=== PATIENT | male | born 1950 | race Caucasian/White ===

== ENCOUNTER → 2018-06-19 13:21 | Outpatient (CLI) | payer MEDICARE, MEDICAID, SELFPAY ==
--- NOTE | 2018-06-19 13:35 | CT_ITS ---
CT head/brain wo con HISTORY: ITS.REASON: HEADACHES ORDERING PHYSICIAN: Tereso Segura MD PATIENT AGE: 67 years COMPARISON: None TECHNIQUE: Axial images obtained without contrast. Brain and bone windows reviewed. All CT scans at the facility use one or more dose reduction, viz: automated exposure control, ma/kV adjustment per patient size (including targeted exams where dose is matched to indication, i.e. head), or iterative reconstruction technique. FINDINGS: No midline shift, mass effect, intracranial hemorrhage, hydrocephalus, or extra-axial fluid collection is evident. There is asymmetric prominence of the CSF space in the left cerebellopontine angle possibly due to an arachnoid cyst. There is hyperdensity noted at the foramen [id number] measuring 7 mm x 7 mm in consistent with a colloid cyst. No definite hydrocephalus. The calvarium has an unremarkable appearance. No mastoid effusion. Opacified left mid ethmoid air cells noted at 11 mm.. IMPRESSION: 1. Hyperdense nodular lesion at the foramen of the marrow consistent with a colloid cyst at 7 x 7 mm. Recommend MRI without and with contrast for confirmation. 2. Asymmetric prominence of the left cerebellopontine angle space which could be due to an arachnoid cyst or due to compression of the brainstem by a tortuous vertebral artery. MRI may also further evaluate this.
[2018-06-19 14:23] LABS: Basophils # 0.1 K/mm3 (0-0.2); Basophils % 0.4 % (0.1-2.0); Eosinophils # 0.3 K/mm3 (0.0-0.4); Eosinophils % 2.2 % (0.1-12.0); Hematocrit 40.5 % (42.0-52.0); Hemoglobin 12.8 g/dL (14.1-18.0); Lymphocytes # 1.6 K/mm3 (0.7-4.5); Mean Corpuscular HGB Conc 31.6 g/dL (31.8-35.4); Mean Corpuscular Hemoglobin 26.6 pg (27.0-31.2); Mean Corpuscular Volume 84.3 fl (80-94); Mean Platelet Volume 6.6 fl (7.4-10.4); Monocytes # 0.8 K/mm3 (0.1-1.0); Monocytes % 5.6 % (1.7-9.3); Neutrophils # 10.6 K/mm3 (1.8-7.8); Neutrophils % 79.7 % (37.0-80.0); Platelet Count 374 K/mm3 (142-424); Red Cell Distribution Width 15.5 % (11.5-17.5); White Blood Count 13.3 K/mm3 (4.8-10.8)
[2018-06-19 15:29] LABS: Erythrocyte Sedimentation Rate 75 mm/hr (0-20)
== END ==
PROVIDERS: PCP Emergency Medicine; Visit Provider Emergency Medicine
DX: R51 Headache (principal)
CPT/HCPCS: 36415; 70450; 85025; 85651

== ENCOUNTER → 2018-07-03 10:42 | Outpatient (CLI) | payer MEDICARE, MEDICAID, SELFPAY ==
--- NOTE | 2018-07-03 10:45 | MR_ITS ---
MR head/brain wo/w con HISTORY: Stat headache, abnormal head CT with possible colloid cyst, ITS.REASON: ABNORMAL CT HEAD ORDERING PHYSICIAN: Tereso Segura MD PATIENT AGE: 67 years Comparison: 06/19/2018 TECHNIQUE: Standard multiplanar multiecho sequences are performed without and with gadolinium enhancement. FINDINGS: No midline shift, mass effect, hydrocephalus, or enhancing lesion is evident. The abnormality noted on the CT scan is not as well demonstrated on the MRI. On the CT scan there was a lobular area of increased density measuring 8 mm at the roof of the third ventricle suspicious for a colloid cyst. On the T1-weighted images there is slight increase signal at this region but only mild heterogeneous signal noted on the FLAIR images. Unremarkable findings on the T2-weighted images. No abnormal enhancement evident.. There is no evidence of hydrocephalus. There are mild periventricular ischemic gliotic changes. The cerebellopontine angles, cerebellum, and brainstem are unremarkable. There is an 9 mm rounded hyperintense T2 focus in the ethmoid sinus posteriorly on the left and may be due to a retention cyst. Retention cyst or fluid is present in the sphenoid sinus on the right. IMPRESSION: Abnormality noted on the CT scan is not as well demonstrated on MRI. This was felt to be due to a colloid cyst on the CT scan. Colloid cyst can have variable appearance on MRI. It is possible this could have represented prominent internal cerebral veins or small amount of blood. Suggest follow-up CT to see if this abnormality persists and if so then, a CT angiogram of the brain
[2018-07-03 11:08] LABS: Blood Urea Nitrogen 15 mg/dL (7-18); Creatinine,Serum 0.85 mg/dL (0.70-1.30); Estimated Glomerular Filt Rate 90 ml/min (>60); GFR (African American) 109 ML/MIN (>60)
--- NOTE | 2018-07-03 11:48 | HMH.ITSHM ---
PROAIR ASPIRIN ATORVASTFERROUS SULFATE LANTUS SOLOSTAR LISINOPRIL METFORMIN PROPRANOLOL TOPIRAMATE SERTRALINE
== END ==
PROVIDERS: PCP Emergency Medicine; Visit Provider Emergency Medicine
DX: R93.0 Abnormal findings on diagnostic imaging of skull and head, not elsewhere classified (principal)
CPT/HCPCS: 36415; 70553; 82565; 84520; A9576

== ENCOUNTER → 2018-10-20 09:04 | Outpatient (CLI) | payer MEDICARE, MEDICAID, SELFPAY ==
--- NOTE | 2018-10-20 | CT_ITS ---
CT abdomen pelvis wo/w con CLINICAL INDICATION: Follow-up adrenal mass ITS.REASON: ADRENAL MASS ORDERING PHYSICIAN: Narda Becerril MD PATIENT AGE: 67 years COMPARISON: 10/13/2018 TECHNIQUE: Axial images obtained without and with contrast. Immediate postenhanced and 15. Delayed images are obtained following contrast administration. Sagittal and coronal reformats. All CT scans at the facility use one or more dose reduction, viz: automated exposure control, ma/kV adjustment per patient size (including targeted exams where dose is matched to indication, i.e. head), or iterative reconstruction technique. PROCEDURE: Oral Contrast: None IV Contrast: None . FINDINGS: There is trace right-sided effusion. Prior cholecystectomy. There is an 8 millimeter isodensity in the right hepatic lobe unchanged since 09/27/2017. There are bilateral adrenal masses as previously described measuring up to 2.8 x 2.1 cm on the right 7 x 2.5 cm on the left. They do NOT demonstrate enhancement characteristics of adenomas and are consistent with metastasis.. In addition, there is a left renal mass involving the mid to upper pole the left kidney laterally measuring 3 cm. There is also a right renal mass can't 2.8 x 2.4 cm in the central aspect of the right kidney and an additional soft tissue mass involving the posterior aspect of the right kidney at 1.9 cm. There are bilateral renal cysts as well and there is a nonobstructing 4 mm stone in the lower pole the right kidney. The spleen and pancreas have an unremarkable appearance. No intestinal obstruction or free air. A destructive mass involves the proximal aspect of the right femur medially at the lesser trochanteric region measuring 3.4 cm. There is mild ectasia of the abdominal aorta at 2.8 cm. No evidence of retroperitoneal hemorrhage. No retroperitoneal or intraperitoneal adenopathy. IMPRESSION: 1. 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 2. Nonobstructing left nephrolithiasis
--- NOTE | 2018-10-20 | CT_ITS ---
CT chest w con HISTORY: Evaluate for lung primary carcinoma. Adrenal nodules, metastatic lesion to the right femur, renal mass ITS.REASON: ADRENAL LESION ORDERING PHYSICIAN: Narda Becerril MD PATIENT AGE: 67 years COMPARISON: None TECHNIQUE: Axial images obtained following the administration of 75 mL of Isovue 370 . Sagittal, and coronal reformatted images are also generated and reviewed. All CT scans at the facility use one or more dose reduction, viz: automated exposure control, ma/kV adjustment per patient size (including targeted exams where dose is matched to indication, i.e. head), or iterative reconstruction technique. FINDINGS: There is a large right upper lobe/right hilar/mediastinal mass. Soft tissue mass extends from the right aspect of the central mediastinum into the hilum and right upper lobe. Some of this may be due to collapsed 1. The soft tissue mass in the mediastinum and right hilum however is consistent with neoplasm. The right-sided mass measures 10 by 5.6 x 5.4 cm. The mediastinal and right hilar mass causes narrowing of the right mainstem bronchus and occlusion of the right upper lobe bronchus and right middle lobe bronchus neither one of which are demonstrated. There is collapse of the right upper lobe and right middle lobe. There is a small pneumothorax in the right upper lung anteriorly and medially versus bulla. There is a small right-sided effusion. There are destructive changes involving the right second rib posteriorly. This area measures approximately 2 cm. There is focal pleural thickening at this region. There are severe coronary artery calcifications. There is normal heart size. No evidence of pleural effusion. No contralateral mediastinal or hilar adenopathy. There is mild thickening of the esophagus. There is an 11 mm lytic lesion involving the left fourth rib laterally. The margins are fairly well-circumscribed. A noncalcified 4 mm nodule is present within the lingula. A subpleural 4 mm nodule is present in the left lower lobe anteriorly. IMPRESSION: 1. Large right-sided mediastinal and hilar mass extending into the right upper lobe with collapse of the right upper lobe and right middle lobe consistent with bronchogenic neoplasm. There is also circumferential narrowing of the right mainstem bronchus due to the mass. There is trace right effusion. The mediastinal and right hilar mass would be the most accessible and safest lesion for biopsy with bronchoscopy as opposed to the adrenal masses. 2. There is a destructive lesion involving the right second rib consistent with metastasis. A fairly well-circumscribed lytic lesion involving the left fourth rib. 3. Coronary artery disease 4. There is a small loculated right upper thoracic pneumothorax in the upper lung zone medially versus a pneumatocele or bulla accentuated by the volume loss.
--- NOTE | 2018-10-20 10:00 | MR_ITS ---
MR head/brain wo/w con HISTORY: Lung cancer with metastatic disease ITS.REASON: CHEST AND BRAIN LESIONS ORDERING PHYSICIAN: Narda Becerril MD PATIENT AGE: 67 years Comparison: 07/03/2018 TECHNIQUE: Standard multiplanar multiecho sequences are performed without and with gadolinium enhancement. FINDINGS: No midline shift, mass effect, intracranial hemorrhage, or hydrocephalus is evident. There are nonspecific periventricular and subcortical T2 white matter hyperintensities consistent with ischemic gliotic change from microvascular disease. No intracranial enhancing lesions are evident. No evidence of acute infarction. The cerebellopontine angles, cerebellum, and brainstem are unremarkable. The pituitary optic chiasm and corpus callosum have an unremarkable appearance. Craniocervical junction is unremarkable. Previous CT raised the question of a colloid cyst at the foramen of [place]. This area once again has an unremarkable MRI appearance and may have been due to prominent cerebral veins on the CT scan. A 9 mm retention cyst or polyp is noted in the left ethmoid region as before. No acute calvarial abnormality apparent. No sinus air-fluid level or mastoid effusion. IMPRESSION: 1. Overall no change with no acute finding. 2. Mild periventricular ischemic gliotic changes. 3. No convincing evidence of metastatic disease
== END ==
PROVIDERS: PCP Emergency Medicine; Visit Provider Internal Medicine Medical Oncology
DX: E27.9 Disorder of adrenal gland, unspecified (principal); R51 Headache
CPT/HCPCS: 70553; 71260; 74177; 74178; A9576; Q9967

== ENCOUNTER → 2018-10-24 08:41 | Outpatient (CLI) | payer MEDICARE, MEDICAID, SELFPAY ==
--- NOTE | 2018-10-24 08:51 | XR_ITS ---
XR hip RT 2-3V w/pelvis HISTORY: ITS.REASON: right hip pain, lytic lesion of the right hip, probable bronchogenic carcinoma with metastatic disease ORDERING PHYSICIAN: Kal Mota MD PATIENT AGE: 67 years COMPARISON: 10/20/2018 FINDINGS: There is a rounded lytic lesion involving the medial aspect of the intertrochanteric region of the proximal femur with destruction of the needle aspect of the proximal femur and the superior aspect of the lesser trochanter. This area measures approximately 3.6 cm. No obvious fracture or malalignment. There are surgical clips in the right inguinal region. IMPRESSION: Lytic lesion of the right femur along the lesser trochanter and intertrochanteric region as described above with metastatic disease
--- NOTE | 2018-10-24 08:51 | XR_ITS ---
XR femur RT 2V HISTORY: Femur pain ITS.REASON: right hip pain, lytic lesion of the right hip, probable bronchogenic carcinoma with metastatic disease ORDERING PHYSICIAN: Kal Mota MD PATIENT AGE: 67 years COMPARISON: 10/20/2018 FINDINGS: There is a rounded lytic lesion involving the medial aspect of the intertrochanteric region of the proximal femur with destruction of the needle aspect of the proximal femur and the superior aspect of the lesser trochanter. This area measures approximately 3.6 cm. No obvious fracture or malalignment. There are surgical clips in the right inguinal region. The mid and distal aspect of the femur has an unremarkable appearance. There are surgical clips along the thigh medially. Prior femoropopliteal bypass bypass IMPRESSION: Lytic lesion of the right femur along the lesser trochanter and intertrochanteric region as described above with metastatic disease
== END ==
PROVIDERS: PCP Emergency Medicine; Visit Provider Orthopaedic Surgery
DX: M25.551 Pain in right hip (principal); M89.8X5 Other specified disorders of bone, thigh
CPT/HCPCS: 73502; 73552

== ENCOUNTER 2018-10-27 10:17 | Inpatient (IN) ==
[2018-10-27 11:47] LABS: Basophils # 0.1 K/mm3 (0-0.2); Basophils % 0.5 % (0.1-2.0); Eosinophils # 0.1 K/mm3 (0.0-0.4); Eosinophils % 0.6 % (0.1-12.0); Hematocrit 29.1 % (42.0-52.0); Hemoglobin 8.3 g/dL (14.1-18.0); Mean Corpuscular HGB Conc 28.5 g/dL (31.8-35.4); Mean Corpuscular Hemoglobin 23.5 pg (27.0-31.2); Mean Corpuscular Volume 82.4 fl (80-94); Monocytes # 0.8 K/mm3 (0.1-1.0); Monocytes % 5.6 % (1.7-9.3); Neutrophils # 11.9 K/mm3 (1.8-7.8); Neutrophils % 86.1 % (37.0-80.0); Platelet Count 558 K/mm3 (142-424); Red Blood Count 3.53 M/mm3 (4.60-6.20); Red Cell Distribution Width 14.9 % (11.5-17.5); White Blood Count 13.8 K/mm3 (4.8-10.8)
[2018-10-27 11:59] LABS: Anion Gap 14.5 mEq/L (5-15); Calcium 11.5 mg/dL (8.5-10.1); Potassium 5.5 mmoL/L (3.5-5.1)
[2018-10-27 12:00] LABS: INR 1.17 (0.9-1.1)
[2018-10-27 12:08] LABS: Lymphocytes % 4 % (10-50); Monocytes % 4 % (2-9); Neutrophils % 92 % (42-76); RBC Morphology Normal; Total Cells Counted 100
--- NOTE | 2018-10-27 13:27 | History & Physical Report ---
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 - pt has seen dr garcia and because of metastatic disease to hip and was seen by ortho who felt that pt would need surg [facility] History I have reviewed the patient's past medical history: Yes Medical History: Reports:: Cancer, Depression, Diabetes Mellitus Type 2, Hyperlipidemia, Hypertension, Migraine Denies:: Diabetes Mellitus Type 1 Have you ever received a pneumonia vaccine?: Yes (candy) Have you received a flu vaccine this season?: Yes (candy) Other Medical History: Reports: Anemia, Arthritis Amputation: No - *Social History Educational Level: Completed High School Smoking Status: Former smoker Tobacco Type: cigarettes, pipe Alcohol Intake: never Substance Use Type: former substance user Occupational Status: disabled Housing: [facility] Travel in the last 8 weeks: None - Psychiatric History Expresses thoughts of harming self/others: None Suicide Plan Description: No Plan Pschychiatric History:: Reports:: Depression *Family Hx:: Unable to obtain Review of Systems - Review of Systems Review of systems:: pertinent systems reviewed and negative unless documented below - Constitutional Denies fever(s) - Eyes Denies change in vision - ENT Denies sinus pain - *Cardiovascular Denies chest pain - *Respiratory Denies cough - *Gastrointestinal Denies abdominal pain - *Genitourinary Denies blood in urine - *Musculoskeletal Reports joint pain, Reports back pain, Reports limited joint movement, Reports body aches - Integumentary/Breasts Denies rash - *Neurologic Reports seizure-like activity, Denies abnormal speech, Denies localized weakness, Denies headache(s), Denies seizure-like activity - Psychiatric Denies anxiety Meds Home Medications Medication Instructions Recorded Confirmed Type Albuterol Sulfate [Proair Hfa 2 puffs IH Q4HP PRN 08/15/18 10/27/18 History 90mcg/puff Inh] Aspirin 81 mg PO DAILY 08/15/18 10/27/18 History Ferrous Sulfate [Ferrous Sulfate 325 mg PO DAILY 08/15/18 10/27/18 History 325mg Tablet] Metformin HCl 1,000 mg PO BID 08/15/18 10/27/18 History Propranolol HCl 40 mg PO BID 08/15/18 10/27/18 History Quetiapine Fumarate 25 mg PO HS 08/15/18 10/27/18 History RX: Acetaminophen [Acetaminophen 2 tab PO QIDP PRN 08/15/18 10/27/18 History 325mg tab] RX: Atorvastatin Calcium 850 mg PO DAILY 08/15/18 10/27/18 History [Atorvastatin 80mg Tab] RX: Insulin Glargine,Hum.rec.anlog 15 units SQ HS 08/15/18 10/27/18 History [Insulin Glargine 100 Units/mL 3mL flexpen] RX: Lisinopril [Lisinopril 2.5mg 2.5 mg PO DAILY 08/15/18 10/27/18 History Tab] RX: Sertraline HCl [Zoloft 100mg 100 mg PO DAILY 08/15/18 10/27/18 History tablet] Topiramate 50 mg PO HS 08/15/18 10/27/18 History RX: Lactulose [Lactulose 10gm/15ml 10 mg PO DAILY PRN 10/27/18 10/27/18 History Oral Soln] RX: Oxycodone HCl [OxyIR 5mg 5 mg PO Q4-6H PRN 10/27/18 10/27/18 History tablet] Allergies Allergy/AdvReac Type Severity Reaction Status Date / Time PENICILLIN Allergy Intermediate I-HIVES Uncoded 10/24/18 09:19 Exam Vital signs and Labs for Last 24 Hours: Temp Pulse Resp BP Pulse Ox 98.3 F 74 22 95/75 L 95 10/27/18 13:15 10/27/18 13:15 10/27/18 10:25 10/27/18 13:15 10/27/18 13:15 Laboratory Results - last 24 hr 10/27/18 11:30: WBC 13.8 H, RBC 3.53 L, Hgb 8.3 L, Hct 29.1 L, MCV 82.4, MCH 23.5 L, MCHC 28.5 L, RDW 14.9, Plt Count 558 H, MPV 6.0 L, Neut % (Auto) 86.1 H, Lymph % (Auto) 7.0 L, [place] % (Auto) 5.6, Eos % (Auto) 0.6, Baso % (Auto) 0.5, Neut # (Auto) 11.9 H, Lymph # (Auto) 1.0, [place] # (Auto) 0.8, Eos # (Auto) 0.1, Baso # (Auto) 0.1, Total Counted 100, Neutrophils % (Manual) 92 H, Lymphocytes % (Manual) 4 L, Monocytes % (Manual) 4, Platelet Estimate Slight increase, RBC Morphology Normal 10/27/18 11:30: Blood Type O Positive, Antibody Screen Negative, Crossmatch (AHG) See Detail 10/27/18 11:30: PT 12.0 H, INR 1.17 H 10/27/18 11:30: Sodium 136, Potassium 5.5 H, Chloride 100, Carbon Dioxide 27, Anion Gap 14.5, BUN 34 H, Creatinine 1.25, Estimated Creat Clear 50, Estimated GFR 58 L, Est GFR ( Amer) 70, Glucose 90, Calcium 11.5 H 10/27/18 12:18: Blood Type Confirm O Positive I & O for Last 24 hours: Intake & Output 10/25/18 10/26/18 10/27/18 10/28/18 11:59 11:59 11:59 11:59 Intake Total 0 / 0 Balance 0 / 0 Weight 135 lb 4 oz - Constitutional no acute distress, thin - *Routine HEENT Exam Head: Present: normocephalic Eye: Present: EOMI, PERRL. Absent: conjunctival icterus ENT: Present: mucous membranes dry - *Routine Neck Exam Present: supple. Absent: JVD - *Routine Respiratory Exam Present: CTA bilaterally - *Routine Cardiovascular Exam Present: RRR, murmur, S4 - *Routine Abdominal Exam Present: soft - *Routine Extremities Exam Absent: Rufina's sign - Routine Back/Spine/Pelvis Exam Comments: pain rt hip with rom - *Routine Skin Exam Present: intact - *Routine Neurological Exam Present: alert, oriented X3, CN II-XII intact - Routine Psychiatric Exam Present: cooperative Assessment and Plan (1) Lung cancer metastatic to bone Current visit: Yes Status: Acute Category: Medical Code(s): C34.90 - Malignant neoplasm of unspecified part of unspecified bronchus or lung; C79.51 - Secondary malignant neoplasm of bone (2) Mass of both adrenal glands Current visit: No Status: Acute Category: Medical Code(s): E27.9 - Disorder of adrenal gland, unspecified (3) Anemia Current visit: Yes Status: Acute Qualifiers: Anemia type: unspecified type Qualified Code(s): D64.9 - Anemia, unspecified Category: Medical Code(s): D64.9 - Anemia, unspecified (4) Anemia Current visit: No Status: Acute Qualifiers: Anemia type: unspecified type Qualified Code(s): D64.9 - Anemia, unspecified Category: Medical Code(s): D64.9 - Anemia, unspecified (5) Renal insufficiency Current visit: Yes Status: Acute Category: Medical Code(s): N28.9 - Disorder of kidney and ureter, unspecified (6) Hypercalcemia Current visit: Yes Status: Acute Category: Medical Code(s): E83.52 - Hypercalcemia (7) CAD (coronary artery disease) Current visit: Yes Status: Acute Qualifiers: Coronary Disease-Associated Artery/Lesion type: unspecified vessel or lesion type Category: Medical Code(s): I25.10 - Atherosclerotic heart disease of [place] coronary artery without angina pectoris
--- NOTE | 2018-10-27 14:15 | Consult Report ---
History of Present Illness Consult date: 10/27/18 Requesting physician: Tereso Segura Consult reason: pre-op evaluation Chief complaint: Hip pain Additional Medical History:: 1. Tobacco use, discontinued greater than 1 year ago 2. Diabetes mellitus, treated for greater than 10 years 3. 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 Right hip fracture secondary to metastatic cancer 4. History of hypertension, now with low blood pressure 5. Hyperlipidemia 6. Anemia 7. Thrombocytosis 8. Severe coronary artery calcifications on CT of chest, 10/20/18 History of present illness: 67-year-old white male with diabetes and metastatic lung cancer to adrenals and bone admitted for right hip fracture. Patient has a significant amount of pain from this right hip fracture due to metastasis and was admitted for surgical correction for pain control. Cardiology was asked to see the patient for preop evaluation. Patient denies chest pain or prior cardiac history. States he has been treated for diabetes for greater than 10 years and a discontinued smoking more than 1 year ago. [facility] History Medical History: Reports:: Cancer, Depression, Diabetes Mellitus Type 2, Hyperlipidemia, Hypertension, Migraine Denies:: Diabetes Mellitus Type 1 Have you ever received a pneumonia vaccine?: Yes ([place]) Have you received a flu vaccine this season?: Yes ([place]) Other Medical History: Reports: Anemia, Arthritis Amputation: No - *Social History Educational Level: Completed High School Smoking Status: Former smoker Tobacco Type: cigarettes, pipe Alcohol Intake: never Substance Use Type: former substance user Occupational Status: disabled Housing: detention Travel in the last 8 weeks: None - Psychiatric History Expresses thoughts of harming self/others: None Suicide Plan Description: No Plan Pschychiatric History:: Reports:: Depression *Family Hx:: Unable to obtain Meds Home Medications Medication Instructions Recorded Confirmed Type Acetaminophen [Acetaminophen 325mg 2 tab PO QIDP PRN 08/15/18 10/27/18 History tab] Albuterol Sulfate [Proair Hfa 2 puffs IH Q4HP PRN 08/15/18 10/27/18 History 90mcg/puff Inh] Aspirin 81 mg PO DAILY 08/15/18 10/27/18 History Atorvastatin Calcium [Atorvastatin 850 mg PO DAILY 08/15/18 10/27/18 History 80mg Tab] Ferrous Sulfate [Ferrous Sulfate 325 mg PO DAILY 08/15/18 10/27/18 History 325mg Tablet] Insulin Glargine,Hum.rec.anlog 15 units SQ DAILY 08/15/18 10/27/18 History [Insulin Glargine 100 Units/mL 3mL flexpen] Lisinopril [Lisinopril 2.5mg Tab] 2.5 mg PO DAILY 08/15/18 10/27/18 History Metformin HCl 1,000 mg PO BID 08/15/18 10/27/18 History Propranolol HCl 40 mg PO BID 08/15/18 10/27/18 History Quetiapine Fumarate 25 mg PO DAILY 08/15/18 10/27/18 History Sertraline HCl [Zoloft 100mg 100 mg PO DAILY 08/15/18 10/27/18 History tablet] Topiramate 50 mg PO DAILY 08/15/18 10/27/18 History Lactulose [Lactulose 10gm/15ml 10 mg PO NEEDED PRN 10/27/18 10/27/18 History Oral Soln] Lactulose [Lactulose 10gm/15ml 10 mg PO DAILY PRN 10/27/18 10/27/18 History Oral Soln] Oxycodone HCl [OxyIR 5mg tablet] 5 mg PO Q4-6H PRN 10/27/18 10/27/18 History Allergies Allergy/AdvReac Type Severity Reaction Status Date / Time PENICILLIN Allergy Intermediate I-HIVES Uncoded 10/24/18 09:19 Review of Systems - *Cardiovascular Denies chest pain, Denies shortness of breath with activity - *Respiratory Denies shortness of breath with activity - *Gastrointestinal Denies abdominal pain, Denies loose stools - *Genitourinary Denies blood in urine - *Musculoskeletal Reports joint pain Exam Vital signs and Labs for Last 24 Hours: Temp Pulse Resp BP Pulse Ox 98.6 F 72 18 98/64 L 97 10/27/18 13:55 10/27/18 13:55 10/27/18 13:55 10/27/18 13:55 10/27/18 13:55 Laboratory Results - last 24 hr 10/27/18 11:30: WBC 13.8 H, RBC 3.53 L, Hgb 8.3 L, Hct 29.1 L, MCV 82.4, MCH 23.5 L, MCHC 28.5 L, RDW 14.9, Plt Count 558 H, MPV 6.0 L, Neut % (Auto) 86.1 H, Lymph % (Auto) 7.0 L, [place] % (Auto) 5.6, Eos % (Auto) 0.6, Baso % (Auto) 0.5, Neut # (Auto) 11.9 H, Lymph # (Auto) 1.0, [place] # (Auto) 0.8, Eos # (Auto) 0.1, Baso # (Auto) 0.1, Total Counted 100, Neutrophils % (Manual) 92 H, Lymphocytes % (Manual) 4 L, Monocytes % (Manual) 4, Platelet Estimate Slight increase, RBC Morphology Normal 10/27/18 11:30: Blood Type O Positive, Antibody Screen Negative, Crossmatch (AHG) See Detail 10/27/18 11:30: PT 12.0 H, INR 1.17 H 10/27/18 11:30: Sodium 136, Potassium 5.5 H, Chloride 100, Carbon Dioxide 27, Anion Gap 14.5, BUN 34 H, Creatinine 1.25, Estimated Creat Clear 50, Estimated GFR 58 L, Est GFR ( Amer) 70, Glucose 90, Calcium 11.5 H 10/27/18 12:18: Blood Type Confirm O Positive I & O for Last 24 hours: Intake & Output 10/25/18 10/26/18 10/27/18 10/28/18 11:59 11:59 11:59 11:59 Intake Total 240 / 240 Balance 240 / 240 Weight 135 lb 4 oz - Constitutional mild distress, moderate distress Comments: Patient does appear to be in mild distress due to his hip pain. He answers briefly but appropriately. He knows where he is at, the date and the president. - *Routine HEENT Exam Head: Present: normocephalic Eye: Present: EOMI, PERRL ENT: Present: mucous membranes moist - *Routine Neck Exam Present: supple. Absent: JVD, carotid bruit - *Routine Respiratory Exam Absent: accessory muscle use, rales, rhonchi, wheezes - *Routine Cardiovascular Exam Present: RRR. Absent: murmur, gallop, rubs - *Routine Abdominal Exam Present: soft. Absent: tenderness, distended, guarding - *Routine Extremities Exam Absent: edema, calf tenderness - *Routine Neurological Exam Present: alert, oriented X3, moving all extremities Assessment and Plan (1) Lung cancer metastatic to bone Current visit: Yes Status: Acute Category: Medical Code(s): C34.90 - Malignant neoplasm of unspecified part of unspecified bronchus or lung; C79.51 - Secondary malignant neoplasm of bone (2) Mass of both adrenal glands Current visit: No Status: Acute Category: Medical Code(s): E27.9 - Disorder of adrenal gland, unspecified (3) Anemia Current visit: Yes Status: Acute Qualifiers: Anemia type: unspecified type Qualified Code(s): D64.9 - Anemia, unspecified Category: Medical Code(s): D64.9 - Anemia, unspecified (4) Anemia Current visit: No Status: Acute Qualifiers: Anemia type: unspecified type Qualified Code(s): D64.9 - Anemia, unspecified Category: Medical Code(s): D64.9 - Anemia, unspecified (5) Renal insufficiency Current visit: Yes Status: Acute Category: Medical Code(s): N28.9 - Disorder of kidney and ureter, unspecified (6) Hypercalcemia Current visit: Yes Status: Acute Category: Medical Code(s): E83.52 - Hypercalcemia (7) CAD (coronary artery disease) Current visit: Yes Status: Acute Qualifiers: Coronary Disease-Associated Artery/Lesion type: unspecified vessel or lesion type Category: Medical Code(s): I25.10 - Atherosclerotic heart disease of [place] coronary artery without angina pectoris - Assessment and plan all Dx Assessment and Plan for all problems:: 1. EKG shows NSR without acute ST segment changes. 2. PRELIMINARY echo shows preserved LVEF without significant valve disease. 3. Pt is a low and acceptable risk from a cardiac standpoint to proceed with orthopaedic surgery. 4. Continue aspirin michelle-operatively.
--- NOTE | 2018-10-27 15:15 | Pharmacy Consult Notes ---
[facility] Pharmacy VTE Monitoring - Patient Demographics Admission date: 10/27/18 Report Date: 10/27/18 Time: 15:15 Allergies/Adverse Reactions: Patient Allergies PENICILLIN Allergy (Intermediate, Uncoded 10/24/18 09:19) I-HIVES Height: 1.73 m Weight: 61.348 kg Patient Problems: Current Active Problems Lung cancer metastatic to bone (Acute) Anemia (Acute) Renal insufficiency (Acute) Hypercalcemia (Acute) CAD (coronary artery disease) (Acute) - VTE Risk Labs: VTE Related Lab Results Hgb 8.3 g/dL (14.1-18.0) L 10/27/18 11:30 Hct 29.1 % (42.0-52.0) L 10/27/18 11:30 Plt Count 558 K/mm3 (142-424) H 10/27/18 11:30 PT 12.0 seconds (9.4-11.8) H 10/27/18 11:30 INR 1.17 (0.9-1.1) H 10/27/18 11:30 BUN 34 mg/dL (7-18) H 10/27/18 11:30 Creatinine 1.25 mg/dL (0.70-1.30) 10/27/18 11:30 Estimated Creat Clear 50 mL/min (50-200) 10/27/18 11:30 Clinical Trial Participant: No - Prophylaxis VTE Prophylaxis Ordered?: Yes Types of VTE Prophylaxis: TEDS Knee High Location of Applied Device: Bilateral Lower Extremeties
[2018-10-27 20:37] LABS: Hematocrit 33.5 % (42.0-52.0)
[2018-10-27 20:48] LABS: Hemoglobin 10.1 g/dL (14.1-18.0)
--- NOTE | 2018-10-27 20:57 | Cardiology Report ---
PROCEDURE: 2-D M-mode and color Doppler study INDICATIONS FOR THE TEST: Chest pain COPD Heart Murmur+ Tobacco Smokingex Palpitations Fatigue Syncope Edema Hypertension+Diabetes Mellitus+ Rheumatic Fever SOB DAI Obesity Hyperlipidemia Family History HD Additional History LUNG CA STAGE 4, LIMITED STUDY-PT CONDITION PATIENT INFORMATION HEIGHT: 68 WEIGHT:135 GENDER: Male B/P:81/42 2-D/M-MODE INTERPRETATION: 2-D MEASUREMENTS OBSERVED VALUES IN CMS Right Ventricular Dimension (RVDd) 2.7 Interventricular Septum (Thickness)(IVsd) 0.9 Left Ventricular Internal Dimensions(LVIDd) 5.6 Left Ventricular Posterior Wall (Thickness)(LVPWd) 0.8 Aortic Root 2.0 Aortic Cusp Separation JORGE LUSI Left Atrial Dimensions (LAD) 3.3 2D 1. Technically very difficult and poor study. 2. The left atrium is mildly enlarged, left ventricle is normal size, there is abnormal septal motion, visually estimated ejection fraction approximately 55% as endocardial surface of very poorly visualized. 3. The right atrium and right ventricle are moderately enlarged, contractility of the right ventricle appears to be normal. 4. The aortic valve is thickened and calcified leaflet continue to display mobility. 5. The mitral and tricuspid valve are grossly normal. 6. The pulmonic valve is poorly visualized. 7. No significant pericardial effusion noted. DOPPLER INTERROGATION: Doppler interrogation of the aortic, mitral and tricuspid valvular presence of mild mitral and tricuspid regurgitation, tricuspid regurgitation jet velocity is inadequate for calculation of the right ventricular systolic pressure, grade 1 diastolic dysfunction seen with tissue Doppler evidence of raised left atrial pressure. CONCLUSION: 1. Technically very difficult and very poor study. 2. Normal left ventricular size, visually estimated ejection fraction 55% as endocardial surface of very poorly visualized. There is abnormal septal motion. Grade 1 diastolic dysfunction seen with tissue Doppler evidence of raised left atrial pressure. 3. Moderately enlarged right ventricle with normal contractility. 4. Mild mitral and tricuspid regurgitation 5. No significant pericardial effusion noted.
[2018-10-28 06:13] LABS: Basophils % 0.4 % (0.1-2.0); Eosinophils # 0.2 K/mm3 (0.0-0.4); Eosinophils % 1.8 % (0.1-12.0); Hematocrit 33.2 % (42.0-52.0); Hemoglobin 10.2 g/dL (14.1-18.0); Lymphocytes # 0.8 K/mm3 (0.7-4.5); Lymphocytes % 7.1 % (10-50); Mean Corpuscular HGB Conc 30.6 g/dL (31.8-35.4); Mean Corpuscular Hemoglobin 25.2 pg (27.0-31.2); Mean Corpuscular Volume 82.5 fl (80-94); Mean Platelet Volume 6.4 fl (7.4-10.4); Monocytes # 0.8 K/mm3 (0.1-1.0); Monocytes % 7.1 % (1.7-9.3); Neutrophils # 9.4 K/mm3 (1.8-7.8); Neutrophils % 83.6 % (37.0-80.0); Platelet Count 411 K/mm3 (142-424); Red Blood Count 4.02 M/mm3 (4.60-6.20); Red Cell Distribution Width 14.9 % (11.5-17.5); White Blood Count 11.2 K/mm3 (4.8-10.8)
[2018-10-28 06:48] LABS: Anion Gap 16.9 mEq/L (5-15); Calcium 11.2 mg/dL (8.5-10.1); Potassium 4.9 mmoL/L (3.5-5.1)
--- NOTE | 2018-10-28 07:48 | Progress Note ---
Subjective Date: 10/28/18 Time: 07:45 Principal diagnosis: Hip fracture Interval history: 67 yo WM in bed. Complaint of right leg pain. Congested cough. Exam Vital signs and Labs for Last 24 Hours: Temp Pulse Resp BP Pulse Ox 97.2 F L 101 H 20 125/71 93 L 10/28/18 04:00 10/28/18 04:00 10/28/18 04:00 10/28/18 04:00 10/28/18 04:00 Laboratory Results - last 24 hr 10/27/18 11:30: WBC 13.8 H, RBC 3.53 L, Hgb 8.3 L, Hct 29.1 L, MCV 82.4, MCH 23.5 L, MCHC 28.5 L, RDW 14.9, Plt Count 558 H, MPV 6.0 L, Neut % (Auto) 86.1 H, Lymph % (Auto) 7.0 L, [place] % (Auto) 5.6, Eos % (Auto) 0.6, Baso % (Auto) 0.5, Neut # (Auto) 11.9 H, Lymph # (Auto) 1.0, [place] # (Auto) 0.8, Eos # (Auto) 0.1, Baso # (Auto) 0.1, Total Counted 100, Neutrophils % (Manual) 92 H, Lymphocytes % (Manual) 4 L, Monocytes % (Manual) 4, Platelet Estimate Slight increase, RBC Morphology Normal 10/27/18 11:30: Blood Type O Positive, Antibody Screen Negative, Crossmatch (AHG) See Detail 10/27/18 11:30: PT 12.0 H, INR 1.17 H 10/27/18 11:30: Sodium 136, Potassium 5.5 H, Chloride 100, Carbon Dioxide 27, Anion Gap 14.5, BUN 34 H, Creatinine 1.25, Estimated Creat Clear 50, Estimated GFR 58 L, Est GFR ( Amer) 70, Glucose 90, Calcium 11.5 H 10/27/18 12:18: Blood Type Confirm O Positive 10/27/18 20:29: Hgb 10.1 L D, Hct 33.5 L 10/28/18 05:45: WBC 11.2 H, RBC 4.02 L, Hgb 10.2 L, Hct 33.2 L, MCV 82.5, MCH 25.2 L, MCHC 30.6 L, RDW 14.9, Plt Count 411 D, MPV 6.4 L, Neut % (Auto) 83.6 H , Lymph % (Auto) 7.1 L, [place] % (Auto) 7.1, Eos % (Auto) 1.8, Baso % (Auto) 0.4, Neut # (Auto) 9.4 H, Lymph # (Auto) 0.8, [place] # (Auto) 0.8, Eos # (Auto) 0.2, Baso # (Auto) 0.0 10/28/18 05:45: Sodium 135 L, Potassium 4.9, Chloride 98, Carbon Dioxide 25, Anion Gap 16.9 H, BUN 29 H, Creatinine 0.86 D, Estimated Creat Clear 62, Estimated GFR 89, Est GFR ( Amer) 107 D, Glucose 63 L D, Calcium 11.2 H, Magnesium 1.1 L I & O for Last 24 hours: Intake & Output 10/25/18 10/26/18 10/27/18 10/28/18 11:59 11:59 11:59 11:59 Intake Total 980 / 980 Balance 980 / 980 Weight 135 lb 4 oz 135 lb 4 oz - *Routine HEENT Exam Head: Present: normocephalic Eye: Present: EOMI, PERRL ENT: Present: mucous membranes moist - *Routine Respiratory Exam Present: CTA bilaterally, rhonchi. Absent: accessory muscle use, rales, wheezes - *Routine Cardiovascular Exam Present: RRR. Absent: murmur, gallop, rubs - *Routine Neurological Exam Present: alert, oriented X3, moving all extremities Progress Note: A&P (1) Lung cancer metastatic to bone Status: Acute Current Visit: Yes (2) Mass of both adrenal glands Status: Acute Current Visit: No (3) Anemia Status: Acute Current Visit: Yes (4) Anemia Status: Acute Current Visit: No (5) Renal insufficiency Status: Acute Current Visit: Yes (6) Hypercalcemia Status: Acute Current Visit: Yes (7) CAD (coronary artery disease) Status: Acute Current Visit: Yes (8) Hypomagnesemia Status: Acute Current Visit: Yes Assessment and Plan for All Diagnoses:: 1. IV lasix 40 mg once due to blood transfusion yesterday and pulmonary congestion this AM. 2. Supplement magnesium IV 3. Hip surgery planned later today
--- NOTE | 2018-10-28 09:30 | Progress Note ---
[facility] Anesthesia Checklist - Patient Identification Patient Identification: Arm Band, Verbal (Name & ) - Structural Data Admitted From: Inpatient Planned Operative Procedure/s: gamma nail Consent for Planned Operative Procedure(s) Verified: Yes Verified Documents: History and Physical - NPO Status Verified Time NPO: 00:00 - Chart Verification Results Verified: CBC, BMP - Additional verifications Patient : No Anesthesia Reactions: No Hx Blood Transfusions: No Blood Transfusion Reaction: No Cephalosporin Allergy: No Previous Colonoscopy: No - Cardiovascular Assessment Heart Sounds: S1 & S2 Pulse Strength: Baseline Pulse Rhythm: Regular Peripheral Edema: No - Airway Assessment C-Spine Mobility Assessed: Yes TMJ Mobility Assessed: Yes Dentition: Edentulous - Neurological Assessment Level of Consciousness: Awake, Alert, Appropriate Hx Seizures: No Numbness or tingling in extremities: No - Anesthesia Plan Anesthesia Risk discussed: Yes ASA Class: III Anesthesia Type: Spinal [facility] History I have reviewed the patient's past medical history: Yes Medical History: Reports:: Cancer, Depression, Diabetes Mellitus Type 2, Hyperlipidemia, Hypertension, Migraine Denies:: Diabetes Mellitus Type 1 Have you ever received a pneumonia vaccine?: Yes ([place]) Have you received a flu vaccine this season?: Yes ([place]) Other Medical History: Reports: Anemia, Arthritis Amputation: No - *Social History Educational Level: Completed High School Smoking Status: Former smoker Tobacco Type: cigarettes, pipe Alcohol Intake: never Substance Use Type: former substance user Occupational Status: disabled Housing: [facility] Travel in the last 8 weeks: None - Psychiatric History Expresses thoughts of harming self/others: None Suicide Plan Description: No Plan Pschychiatric History:: Reports:: Depression *Family Hx:: Unable to obtain
--- NOTE | 2018-10-28 10:03 | Consult Report ---
*Admission Date: 10/27/18 *Chief complaint: Right hip pain *History of present illness: Patient is a 67-year-old white male admitted to hospital for prophylactic nailing of the right femur. He was recently diagnosed with metastatic cancer with the primary thought to be pulmonary. He has bilateral adrenal metastases as well as bone metastases. There is a large lesion in the right femoral neck at the level of the lesser trochanter. Patient is complaining of a lot of pain in the right hip which is aggravated with any attempted movements of the leg. Following the discussion with Dr. Becerril, oncologist and Dr. Segura, primary care physician, patient elected to proceed with prophylactic nailing of the right femur to help relieve the pain as well as prevent a pathological fracture. He has history of diabetes mellitus type 2 and hypertension. Please refer to my office note for full details. Review of Systems - Review of Systems Review of systems:: pertinent systems reviewed and negative unless documented below - Constitutional Reports anorexia, Reports weakness, Reports weight loss - *Cardiovascular Denies chest pain, Denies chest pain with activity, Denies shortness of breath w ith activity - *Respiratory Denies shortness of breath - *Gastrointestinal Denies abdominal pain - *Musculoskeletal Reports abnormal walking, Reports joint pain, Reports body aches - *Neurologic Reports seizure-like activity, Denies abnormal speech, Denies localized weakness, Denies headache(s), Denies seizure-like activity [facility] History I have reviewed the patient's past medical history: Yes Medical History: Reports:: Cancer, Depression, Diabetes Mellitus Type 2, Hyperlipidemia, Hypertension, Migraine Denies:: Diabetes Mellitus Type 1, Seizures Have you ever received a pneumonia vaccine?: [facility] ([facility]) Have you received a flu vaccine this season?: Yes ([facility]) Other Medical History: Reports: Anemia, Arthritis. Denies: Blood Transfusion Reaction Amputation: No - *Social History Educational Level: Completed High School Smoking Status: Former smoker Tobacco Type: cigarettes, pipe Alcohol Intake: never Substance Use Type: former substance user Occupational Status: disabled Housing: prison Travel in the last 8 weeks: None - Psychiatric History Expresses thoughts of harming self/others: None Suicide Plan Description: No Plan Pschychiatric History:: Reports:: Depression Family Hx:: Unable to obtain Meds Home Medications Medication Instructions Recorded Confirmed Type Acetaminophen [Acetaminophen 325mg 2 tab PO QIDP PRN 08/15/18 10/27/18 History tab] Albuterol Sulfate [Proair Hfa 2 puffs IH Q4HP PRN 08/15/18 10/27/18 History 90mcg/puff Inh] Aspirin 81 mg PO DAILY 08/15/18 10/27/18 History Atorvastatin Calcium [Atorvastatin 850 mg PO DAILY 08/15/18 10/27/18 History 80mg Tab] Ferrous Sulfate [Ferrous Sulfate 325 mg PO DAILY 08/15/18 10/27/18 History 325mg Tablet] Insulin Glargine,Hum.rec.anlog 15 units SQ HS 08/15/18 10/27/18 History [Insulin Glargine 100 Units/mL 3mL flexpen] Metformin HCl 1,000 mg PO BID 08/15/18 10/27/18 History Quetiapine Fumarate 25 mg PO HS 08/15/18 10/27/18 History Sertraline HCl [Zoloft 100mg 100 mg PO DAILY 08/15/18 10/27/18 History tablet] Topiramate 50 mg PO HS 08/15/18 10/27/18 History Lactulose [Lactulose 10gm/15ml 10 mg PO DAILY PRN 10/27/18 10/27/18 History Oral Soln] Oxycodone HCl [OxyIR 5mg tablet] 5 mg PO Q4-6H PRN 10/27/18 10/27/18 History Bisoprolol Fumarate [Zebeta 5mg 5 mg PO DAILY 30 Days #30 tab 10/31/18 Rx tablet] Oxycodone HCl [OxyIR 5mg tablet] 5 - 10 mg PO Q4HP PRN tablet 10/31/18 Rx dilTIAZem HCl [Cardizem 180mg ER 360 mg PO DAILY 30 Days #30 10/31/18 Rx capsule] cap.er.24h Allergies Allergy/AdvReac Type Severity Reaction Status Date / Time Penicillins Allergy Intermediate Hives Verified 10/28/18 08:53 Exam Vital signs and Labs for Last 24 Hours: Temp Pulse Resp BP Pulse Ox 97.0 F L 81 20 138/73 97 10/28/18 08:00 10/28/18 08:00 10/28/18 08:00 10/28/18 08:00 10/28/18 08:00 Laboratory Results - last 24 hr 10/27/18 11:30: WBC 13.8 H, RBC 3.53 L, Hgb 8.3 L, Hct 29.1 L, MCV 82.4, MCH 23.5 L, MCHC 28.5 L, RDW 14.9, Plt Count 558 H, MPV 6.0 L, Neut % (Auto) 86.1 H, Lymph % (Auto) 7.0 L, [place] % (Auto) 5.6, Eos % (Auto) 0.6, Baso % (Auto) 0.5, Neut # (Auto) 11.9 H, Lymph # (Auto) 1.0, [place] # (Auto) 0.8, Eos # (Auto) 0.1, Baso # (Auto) 0.1, Total Counted 100, Neutrophils % (Manual) 92 H, Lymphocytes % (Manual) 4 L, Monocytes % (Manual) 4, Platelet Estimate Slight increase, RBC Morphology Normal 10/27/18 11:30: Blood Type O Positive, Antibody Screen Negative, Crossmatch (G) See Detail 10/27/18 11:30: PT 12.0 H, INR 1.17 H 10/27/18 11:30: Sodium 136, Potassium 5.5 H, Chloride 100, Carbon Dioxide 27, Anion Gap 14.5, BUN 34 H, Creatinine 1.25, Estimated Creat Clear 50, Estimated GFR 58 L, Est GFR ( Amer) 70, Glucose 90, Calcium 11.5 H 10/27/18 12:18: Blood Type Confirm O Positive 10/27/18 20:29: Hgb 10.1 L D, Hct 33.5 L 10/28/18 05:45: WBC 11.2 H, RBC 4.02 L, Hgb 10.2 L, Hct 33.2 L, MCV 82.5, MCH 25.2 L, MCHC 30.6 L, RDW 14.9, Plt Count 411 D, MPV 6.4 L, Neut % (Auto) 83.6 H , Lymph % (Auto) 7.1 L, [place] % (Auto) 7.1, Eos % (Auto) 1.8, Baso % (Auto) 0.4, Neut # (Auto) 9.4 H, Lymph # (Auto) 0.8, [place] # (Auto) 0.8, Eos # (Auto) 0.2, Baso # (Auto) 0.0 10/28/18 05:45: Sodium 135 L, Potassium 4.9, Chloride 98, Carbon Dioxide 25, Anion Gap 16.9 H, BUN 29 H, Creatinine 0.86 D, Estimated Creat Clear 62, Estimated GFR 89, Est GFR ( Amer) 107 D, Glucose 63 L D, Calcium 11.2 H, Magnesium 1.1 L 10/28/18 09:08: POC Glucose 63 L I & O for Last 24 hours: Intake & Output 10/25/18 10/26/18 10/27/18 10/28/18 11:59 11:59 11:59 11:59 Intake Total 980 / 980 Output Total 200 / 200 Balance 780 / 780 Weight 135 lb 4 oz 135 lb 4 oz - Constitutional mild distress, average body habitus, cooperative - *Routine HEENT Exam Head: Present: normocephalic, atraumatic Eye: Present: EOMI ENT: Present: mucous membranes moist - *Routine Neck Exam Present: supple, full ROM, trachea midline. Absent: lymphadenopathy - *Routine Respiratory Exam Present: rhonchi, diminished air movement. Absent: respiratory distress - *Routine Cardiovascular Exam Present: RRR, Normal S1, Normal S2 - *Routine Abdominal Exam Present: soft, normoactive bowel sounds. Absent: tenderness, organomegaly - *Routine Extremities Exam Comments: On examination of his lower extremities, the leg lengths are equal. The alignment is neutral and no deformity is noted. On examination of the RIGHT hip/thigh the skin is intact. No ecchymosis, swelling, rashes or lesions noted. He has well-healed surgical scar over the anterior lateral aspect of the hip/groin from previous vascular surgery. He is tender over the RIGHT hip and proximal femur. Any attempted movements of the RIGHT hip are painful. Thigh and calf are soft and nontender. Dorsalis pedis and posterior tibial pulses are palpable 2+ bilaterally. Sensation is grossly intact to light touch throughout. He has good range of foot, ankle and toe movements. He is nontender over the left hip joint and has good range of pain-free hip movements on the left side. Diagnostic imaging: X-rays of his pelvis AP view, RIGHT hip AP and lateral views and RIGHT femur AP and lateral views as well as previous CT scan images are reviewed along with radiologist report. Please refer to full radiology reports for all the details. The imaging is showing a large lytic lesion over the right femoral neck at the level of the lesser trochanter. The anterior and lateral cortices of the femoral neck are intact at this level without any pathological fracture. The hip joint is fairly well-preserved. The rest of the femoral shaft/distal femur appear normal. Vascular calcification and metallic clips noted in the soft ti ssues. Results - Labs Result Diagrams: 10/31/18 05:39 10/31/18 05:39 Labs: Abnormal lab results 10/27/18 10/27/18 10/27/18 Range/Units 11:30 11:30 11:30 WBC 13.8 H (4.8-10.8) K/mm3 RBC 3.53 L (4.60-6.20) M/mm3 Hgb 8.3 L (14.1-18.0) g/dL Hct 29.1 L (42.0-52.0) % MCH 23.5 L (27.0-31.2) pg MCHC 28.5 L (31.8-35.4) g/dL Plt Count 558 H (142-424) K/mm3 MPV 6.0 L (7.4-10.4) fl Neut % (Auto) 86.1 H (37.0-80.0) % Lymph % (Auto) 7.0 L (10-50) % Neut # (Auto) 11.9 H (1.8-7.8) K/mm3 Neutrophils % (Manual) 92 H (42-76) % Lymphocytes % (Manual) 4 L (10-50) % PT 12.0 H (9.4-11.8) seconds INR 1.17 H (0.9-1.1) Sodium (136-145) mmol/L Potassium (3.5-5.1) mmoL/L Anion Gap (5-15) mEq/L BUN (7-18) mg/dL Estimated GFR (>60) ml/min Glucose (74-106) mg/dL POC Glucose (70-110) Calcium (8.5-10.1) mg/dL Magnesium (1.4-2.2) mg/dL Crossmatch ([facility]) See Detail 10/27/18 10/27/18 10/28/18 Range/Units 11:30 20:29 05:45 WBC 11.2 H (4.8-10.8) K/mm3 RBC 4.02 L (4.60-6.20) M/mm3 Hgb 10.1 L D 10.2 L (14.1-18.0) g/dL Hct 33.5 L 33.2 L (42.0-52.0) % MCH 25.2 L (27.0-31.2) pg MCHC 30.6 L (31.8-35.4) g/dL Plt Count (142-424) K/mm3 MPV 6.4 L (7.4-10.4) fl Neut % (Auto) 83.6 H (37.0-80.0) % Lymph % (Auto) 7.1 L (10-50) % Neut # (Auto) 9.4 H (1.8-7.8) K/mm3 Neutrophils % (Manual) (42-76) % Lymphocytes % (Manual) (10-50) % PT (9.4-11.8) seconds INR (0.9-1.1) Sodium (136-145) mmol/L Potassium 5.5 H (3.5-5.1) mmoL/L Anion Gap (5-15) mEq/L BUN 34 H (7-18) mg/dL Estimated GFR 58 L (>60) ml/min Glucose (74-106) mg/dL POC Glucose (70-110) Calcium 11.5 H (8.5-10.1) mg/dL Magnesium (1.4-2.2) mg/dL Crossmatch ([facility]) 10/28/18 10/28/18 Range/Units 05:45 09:08 WBC (4.8-10.8) K/mm3 RBC (4.60-6.20) M/mm3 Hgb (14.1-18.0) g/dL Hct (42.0-52.0) % MCH (27.0-31.2) pg MCHC (31.8-35.4) g/dL Plt Count (142-424) K/mm3 MPV (7.4-10.4) fl Neut % (Auto) (37.0-80.0) % Lymph % (Auto) (10-50) % Neut # (Auto) (1.8-7.8) K/mm3 Neutrophils % (Manual) (42-76) % Lymphocytes % (Manual) (10-50) % PT (9.4-11.8) seconds INR (0.9-1.1) Sodium 135 L (136-145) mmol/L Potassium (3.5-5.1) mmoL/L Anion Gap 16.9 H (5-15) mEq/L BUN 29 H (7-18) mg/dL Estimated GFR (>60) ml/min Glucose 63 L D (74-106) mg/dL POC Glucose 63 L (70-110) Calcium 11.2 H (8.5-10.1) mg/dL Magnesium 1.1 L (1.4-2.2) mg/dL Crossmatch ([facility]) H & H 10/27/18 10/27/18 10/28/18 Range/Units 11:30 20:29 05:45 Hgb 8.3 L 10.1 L D 10.2 L (14.1-18.0) g/dL Hct 29.1 L 33.5 L 33.2 L (42.0-52.0) % Coagulation 10/27/18 Range/Units 11:30 INR 1.17 H (0.9-1.1) All other labs normal. Assessment and Plan (1) Lung cancer metastatic to bone Current visit: Yes Status: Acute Category: Medical Code(s): C34.90 - Malignant neoplasm of unspecified part of unspecified bronchus or lung; C79.51 - Secondary malignant neoplasm of bone (2) Mass of both adrenal glands Current visit: No Status: Acute Category: Medical Code(s): E27.9 - Disorder of adrenal gland, unspecified (3) Anemia Current visit: Yes Status: Acute Qualifiers: Anemia type: unspecified type Qualified Code(s): D64.9 - Anemia, uns pecified Category: Medical Code(s): D64.9 - Anemia, unspecified (4) Anemia Current visit: No Status: Acute Qualifiers: Anemia type: unspecified type Qualified Code(s): D64.9 - Anemia, unspecified Category: Medical Code(s): D64.9 - Anemia, unspecified (5) Renal insufficiency Current visit: Yes Status: Acute Category: Medical Code(s): N28.9 - Disorder of kidney and ureter, unspecified (6) Hypercalcemia Current visit: Yes Status: Acute Category: Medical Code(s): E83.52 - Hypercalcemia (7) CAD (coronary artery disease) Current visit: Yes Status: Acute Qualifiers: Coronary Disease-Associated Artery/Lesion type: unspecified vessel or lesion type Category: Medical Code(s): I25.10 - Atherosclerotic heart disease of [place] coronary artery without angina pectoris - Assessment and plan all Dx Assessment and Plan for all problems:: I have again reviewed the clinical and imaging findings with the patient. I have discussed the diagnosis and management options in detail including both nonsurgical and surgical. As was noted in my office note, patient is admitted to hospital under Dr. Segura for a preoperative optimization including blood transfusion followed by prophylactic cephalo-medullary nailing right hip to r elieve the pain as well as to prevent pathological fracture. I have discussed the details of the procedure with the patient and he wished to proceed with surgical remediation in the form of a prophylactic femoral nailing (cephalo- medullary nailing) of the right femur. I explained the procedure, risks and benefits, alternatives and the expected postoperative course and outcome. The complications discussed include but are not limited to infection, bleeding, injury to nerves and blood vessels, DVT, PE, screw cut-out/implant failure, loss of fixation, nonunion, osteonecrosis of the femoral head, femoral shaft fracture, painful hardware, heterotopic ossification, stiffness, weakness, incomplete relief of pain, incomplete return of function and the likely need for further surgery in future, and anesthetic/medical complications including heart attack, stroke, transfusion reaction or . We discussed how any of these events can be devastating. I've explained that the patient is at a significant surgical risk due to his age, current medical status and comorbidities. Patient seemed to understand and accept these risks. We have discussed nonsurgical alternatives as well. The nonoperative management would essentially consist of nonweightbearing mobilization and pain medication. This is less likely to effectively control his pain and there is potential risk of pathological fracture which might necessitate surgery at a later stage. We also discussed the postoperative course including the rehab and physical therapy required. Patient is from a prison and is likely to go back there for rehab after surgery. All his questions were answered and he verbalized a good understanding. I have discussed with Dr. Segura over telephone and he agrees with this plan. Continue medical management as per Dr. Segura.
--- NOTE | 2018-10-28 14:39 | Discharge Summary ---
Addendum entered and electronically signed by Coco Sweet APRN 10/31/18 13:49: pt is dc to [facility] with hospice 10/31/18 at 1:49. Original Note: General - General Admission date:: 10/27/18 Discharge date: 10/28/18 HPI HPI: 67-year-old male admitted to hospital for prophylactic nailing of the right femur. Diagnosed with metastatic cancer with the primary lesion of the lung with bilateral adrenal metastases and bone metastases. Patient is complaining of pain in the right hip which is aggravated with any attempted movements of the leg. Due to pain patient elected to proceed with prophylactic nailing of the right femur to help relieve the pain as well as prevent a pathological fracture. Hospital Course Hospital Course: echo:CONCLUSION: 1. Technically very difficult and very poor study. 2. Normal left ventricular size, visually estimated ejection fraction 55% as endocardial surface of very poorly visualized. There is abnormal septal motion. Grade 1 diastolic dysfunction seen with tissue Doppler evidence of raised left atrial pressure. 3. Moderately enlarged right ventricle with normal contractility. 4. Mild mitral and tricuspid regurgitation 5. No significant pericardial effusion noted. At this time insurance denied surgery. Patient will be discharged back to [facility] will be will try p.o. pain medicine to control pain. We will have hospice consult to help better control patient's pain. Objective Vital signs: Temp Pulse Resp BP Pulse Ox 97.0 F L 81 20 138/73 97 10/28/18 08:00 10/28/18 08:00 10/28/18 08:00 10/28/18 08:00 10/28/18 08:00 no acute distress - *Routine HEENT Exam Head: Present: normocephalic Eye: Present: PERRL ENT: Present: mucous membranes moist - *Routine Respiratory Exam Present: CTA bilaterally - *Routine Cardiovascular Exam Present: RRR - *Routine Abdominal Exam Present: soft, normoactive bowel sounds - *Routine Extremities Exam Comments: Pain in right hip - *Routine Skin Exam Present: intact - *Routine Neurological Exam Present: alert, oriented X3 - Routine Psychiatric Exam Present: normal affect Results Labs on day of discharge: Labs from last 24 hours 10/28/18 10/28/18 10/28/18 11:22 09:08 05:45 WBC RBC Hgb Hct MCV MCH MCHC RDW Plt Count MPV Neut % (Auto) Lymph % (Auto) [place] % (Auto) Eos % (Auto) Baso % (Auto) Neut # (Auto) Lymph # (Auto) [place] # (Auto) Eos # (Auto) Baso # (Auto) Sodium 135 L Potassium 4.9 Chloride 98 Carbon Dioxide 25 Anion Gap 16.9 H BUN 29 H Creatinine 0.86 D Estimated Creat Clear 62 Estimated GFR 89 Est GFR ( Amer) 107 D Glucose 63 L D POC Glucose 74 63 L Calcium 11.2 H Magnesium 1.1 L Blood Type Antibody Screen Crossmatch ([facility]G) 10/28/18 10/27/18 10/27/18 05:45 20:29 11:30 WBC 11.2 H RBC 4.02 L Hgb 10.2 L 10.1 L D Hct 33.2 L 33.5 L MCV 82.5 MCH 25.2 L MCHC 30.6 L RDW 14.9 Plt Count 411 D MPV 6.4 L Neut % (Auto) 83.6 H Lymph % (Auto) 7.1 L [place] % (Auto) 7.1 Eos % (Auto) 1.8 Baso % (Auto) 0.4 Neut # (Auto) 9.4 H Lymph # (Auto) 0.8 [place] # (Auto) 0.8 Eos # (Auto) 0.2 Baso # (Auto) 0.0 Sodium Potassium Chloride Carbon Dioxide Anion Gap BUN Creatinine Estimated Creat Clear Estimated GFR Est GFR ( Amer) Glucose POC Glucose Calcium Magnesium Blood Type O Positive Antibody Screen Negative Crossmatch ([facility]) See Detail - Additional Comments Rounded with Dr. Segura all orders per Imelda DS: Diagnosis - Discharge Diagnosis (1) Lung cancer metastatic to bone Status: Acute (2) Mass of both adrenal glands Status: Acute (3) Anemia Status: Acute (4) Anemia Status: Acute (5) Renal insufficiency Status: Acute (6) Hypercalcemia Status: Acute (7) CAD (coronary artery disease) Status: Acute Discharge Plan - Patient Discharge Instructions ACTIVITY: Continue current activity DIET: continue same diet Patient Instructions: Hip Fracture, Anemia - Follow up Plan Follow up with: Tereso Segura MD [Primary Care Provider] - Disposition: er [facility] Home Medications: Home Medications Medication Instructions Recorded Confirmed Type Acetaminophen [Acetaminophen 325mg 2 tab PO QIDP PRN 08/15/18 10/27/18 History tab] Albuterol Sulfate [Proair Hfa 2 puffs IH Q4HP PRN 08/15/18 10/27/18 History 90mcg/puff Inh] Aspirin 81 mg PO DAILY 08/15/18 10/27/18 History Atorvastatin Calcium [Atorvastatin 850 mg PO DAILY 08/15/18 10/27/18 History 80mg Tab] Ferrous Sulfate [Ferrous Sulfate 325 mg PO DAILY 08/15/18 10/27/18 History 325mg Tablet] Insulin Glargine,Hum.rec.anlog 15 units SQ HS 08/15/18 10/27/18 History [Insulin Glargine 100 Units/mL 3mL flexpen] Lisinopril [Lisinopril 2.5mg Tab] 2.5 mg PO DAILY 08/15/18 10/27/18 History Metformin HCl 1,000 mg PO BID 08/15/18 10/27/18 History Propranolol HCl 40 mg PO BID 08/15/18 10/27/18 History Quetiapine Fumarate 25 mg PO HS 08/15/18 10/27/18 History Sertraline HCl [Zoloft 100mg 100 mg PO DAILY 08/15/18 10/27/18 History tablet] Topiramate 50 mg PO HS 08/15/18 10/27/18 History Lactulose [Lactulose 10gm/15ml 10 mg PO DAILY PRN 10/27/18 10/27/18 History Oral Soln] Oxycodone HCl [OxyIR 5mg tablet] 5 mg PO Q4-6H PRN 10/27/18 10/27/18 History Prescriptions/Medication Reconciliation: Continue Albuterol Sulfate [Proair Hfa 90mcg/puff Inh] 2 puffs IH Q4HP PRN PRN Reason: Shortness Of Breath Or Wheezing Ferrous Sulfate [Ferrous Sulfate 325mg Tablet] 325 mg PO DAILY Topiramate 50 mg PO HS Sertraline HCl [Zoloft 100mg tablet] 100 mg PO DAILY Quetiapine Fumarate 25 mg PO HS Metformin HCl 1,000 mg PO BID Lisinopril [Lisinopril 2.5mg Tab] 2.5 mg PO DAILY Insulin Glargine,Hum.rec.anlog [Insulin Glargine 100 Units/mL 3mL flexpen] 15 units SQ HS Atorvastatin Calcium [Atorvastatin 80mg Tab] 850 mg PO DAILY Aspirin 81 mg PO DAILY Acetaminophen [Acetaminophen 325mg tab] 2 tab PO QIDP PRN PRN Reason: PAIN Lactulose [Lactulose 10gm/15ml Oral Soln] 10 mg PO DAILY PRN PRN Reason: Constipation Oxycodone HCl [OxyIR 5mg tablet] 5 mg PO Q4-6H PRN PRN Reason: pain Propranolol HCl 40 mg PO BID
--- NOTE | 2018-10-28 18:04 | Progress Note ---
Internal Medicine - PN: Subj *Date: 10/28/18 *Time: 15:30 Interval history: pt was dc to go back to [place] when he had a rapid hr a flutter. dc was held due to rhythm change. Exam Vital signs and Labs for Last 24 Hours: Temp Pulse Resp BP Pulse Ox 97.0 F L 90 20 138/73 97 10/28/18 08:00 10/28/18 16:00 10/28/18 08:00 10/28/18 08:00 10/28/18 08:00 Laboratory Results - last 24 hr 10/27/18 11:30: Crossmatch ([facility]) See Detail 10/27/18 20:29: Hgb 10.1 L D, Hct 33.5 L 10/28/18 05:45: WBC 11.2 H, RBC 4.02 L, Hgb 10.2 L, Hct 33.2 L, MCV 82.5, MCH 25.2 L, MCHC 30.6 L, RDW 14.9, Plt Count 411 D, MPV 6.4 L, Neut % (Auto) 83.6 H , Lymph % (Auto) 7.1 L, [place] % (Auto) 7.1, Eos % (Auto) 1.8, Baso % (Auto) 0.4, Neut # (Auto) 9.4 H, Lymph # (Auto) 0.8, [place] # (Auto) 0.8, Eos # (Auto) 0.2, Baso # (Auto) 0.0 10/28/18 05:45: Sodium 135 L, Potassium 4.9, Chloride 98, Carbon Dioxide 25, Anion Gap 16.9 H, BUN 29 H, Creatinine 0.86 D, Estimated Creat Clear 62, Estimated GFR 89, Est GFR ( Amer) 107 D, Glucose 63 L D, Calcium 11.2 H, Magnesium 1.1 L 10/28/18 09:08: POC Glucose 63 L 10/28/18 11:22: POC Glucose 74 I & O for Last 24 hours: Intake & Output 10/26/18 10/27/18 10/28/18 10/29/18 11:59 11:59 11:59 11:59 Intake Total 980 / 980 240 / 240 Output Total 200 / 200 1100 / 1100 Balance 780 / 780 -860 / -860 Weight 135 lb 4 oz 135 lb 4 oz Narrative: assessment done on morning rounds. - *Routine Neck Exam Absent: lymphadenopathy - *Routine Abdominal Exam Absent: tenderness - *Routine Extremities Exam Absent: cyanosis, clubbing, edema Comments: hip pain - *Routine Skin Exam Absent: rash Assessment and Plan (1) Lung cancer metastatic to bone Current visit: Yes Status: Acute Category: Medical Code(s): C34.90 - Malignant neoplasm of unspecified part of unspecified bronchus or lung; C79.51 - Secondary malignant neoplasm of bone (2) Mass of both adrenal glands Current visit: No Status: Acute Category: Medical Code(s): E27.9 - Disorder of adrenal gland, unspecified (3) Anemia Current visit: Yes Status: Acute Qualifiers: Anemia type: unspecified type Qualified Code(s): D64.9 - Anemia, unspecified Category: Medical Code(s): D64.9 - Anemia, unspecified (4) Anemia Current visit: No Status: Acute Qualifiers: Anemia type: unspecified type Qualified Code(s): D64.9 - Anemia, unspecified Category: Medical Code(s): D64.9 - Anemia, unspecified (5) Renal insufficiency Current visit: Yes Status: Acute Category: Medical Code(s): N28.9 - Disorder of kidney and ureter, unspecified (6) Hypercalcemia Current visit: Yes Status: Acute Category: Medical Code(s): E83.52 - Hypercalcemia (7) CAD (coronary artery disease) Current visit: Yes Status: Acute Qualifiers: Coronary Disease-Associated Artery/Lesion type: unspecified vessel or lesion type Category: Medical Code(s): I25.10 - Atherosclerotic heart disease of [place] coronary artery without angina pectoris - Assessment and plan all Dx Assessment and Plan for all problems:: rounded with chintan all orders per chintan
--- NOTE | 2018-10-29 07:19 | Progress Note ---
Internal Medicine - PN: Subj *Date: 10/29/18 *Time: 07:16 Interval history: pt seen and no specific c/o - he had run of a fib with rvr about 0430 - ekg reviewed but responded to iv card izam and now with nsr- no syncope or chest pain Exam Vital signs and Labs for Last 24 Hours: Temp Pulse Resp BP Pulse Ox 94 F L 85 22 116/67 94 L 10/29/18 07:01 10/29/18 07:01 10/29/18 07:01 10/29/18 07:01 10/29/18 07:01 Laboratory Results - last 24 hr 10/28/18 09:08: POC Glucose 63 L 10/28/18 11:22: POC Glucose 74 I & O for Last 24 hours: Intake & Output 10/26/18 10/27/18 10/28/18 10/29/18 11:59 11:59 11:59 11:59 Intake Total 980 / 980 1070 / 1070 Output Total 200 / 200 1200 / 1200 Balance 780 / 780 -130 / -130 Weight 135 lb 4 oz 135 lb 4 oz 140 lb 14.4 oz - Constitutional no acute distress, cachectic - *Routine HEENT Exam Head: Present: normocephalic Eye: Present: EOMI, PERRL ENT: Present: mucous membranes dry - *Routine Neck Exam Absent: JVD - *Routine Respiratory Exam Present: CTA bilaterally - *Routine Cardiovascular Exam Present: RRR, murmur, S4 - *Routine Abdominal Exam Present: soft - *Routine Extremities Exam Absent: edema, calf tenderness - *Routine Skin Exam Present: intact - *Routine Neurological Exam Present: alert, CN II-XII intact - Routine Psychiatric Exam Present: unable to assess Assessment and Plan (1) Lung cancer metastatic to bone Current visit: Yes Status: Acute Category: Medical Code(s): C34.90 - Malignant neoplasm of unspecified part of unspecified bronchus or lung; C79.51 - Secondary malignant neoplasm of bone (2) Mass of both adrenal glands Current visit: No Status: Acute Category: Medical Code(s): E27.9 - Disorder of adrenal gland, unspecified (3) Anemia Current visit: Yes Status: Acute Qualifiers: Anemia type: unspecified type Qualified Code(s): D64.9 - Anemia, unspecified Category: Medical Code(s): D64.9 - Anemia, unspecified (4) Anemia Current visit: No Status: Acute Qualifiers: Anemia type: unspecified type Qualified Code(s): D64.9 - Anemia, unspecified Category: Medical Code(s): D64.9 - Anemia, unspecified (5) Renal insufficiency Current visit: Yes Status: Acute Category: Medical Code(s): N28.9 - Disorder of kidney and ureter, unspecified (6) Hypercalcemia Current visit: Yes Status: Acute Category: Medical Code(s): E83.52 - Hypercalcemia (7) CAD (coronary artery disease) Current visit: Yes Status: Acute Qualifiers: Coronary Disease-Associated Artery/Lesion type: unspecified vessel or lesion type Category: Medical Code(s): I25.10 - Atherosclerotic heart disease of [place] coronary artery without angina pectoris (8) Atrial fibrillation with RVR Current visit: Yes Status: Acute Category: Medical Code(s): I48.91 - Unspecified atrial fibrillation
--- NOTE | 2018-10-29 12:11 | Progress Note ---
[facility] Anesthesia Record Part I Intake, IV Amount: 1,500 Estimated blood loss (mL): 200 Urine output (mL): 100 Blood Products used (#): none Blood Pressure: 122/68 SaO2: 96 Pulse Rate: 85 Respiratory Rate: 20 Temperature: 98.5 F Patient is:: Awake, Stable Stable to PACU at:: 12:09
--- NOTE | 2018-10-29 12:12 | Progress Note ---
[facility] Anesthesia Record Part II Discharge Time: 12:39 Destination: Medical Surgical Department PACU nurse assessment reviewed?: Yes Patient Condition:: Good Anesthesia Complications:: None Swallowing reflex intact?: Yes Cyanosis?: No
--- NOTE | 2018-10-29 12:17 | Operative Note ---
Date of procedure: 10/29/18 Pre-op Diagnosis:: Metastatic lesion femoral neck, right hip Post-op Diagnosis:: Same Procedure performed:: Prophylactic cephalo-medullary nailing, right femur Surgeon:: Kal Mota MD Aviation Technical Systems Specialist(s):: Ana Herrera GOLD LETTERER:: Roberto Conklin Anesthesia: spinal Estimated blood loss (mL): 200 Clinical Note:: Patient is a 67-year-old white male admitted to hospital for prophylactic nailing of the right femur. He was recently diagnosed with metastatic cancer with the primary thought to be pulmonary. He has bilateral adrenal metastases as well as bone metastases. There is a large lesion in the right femoral neck at the level of the lesser trochanter. Patient is complaining of a lot of pain in the right hip which is aggravated with any attempted movements of the leg. Following the discussion with Dr. Becerril, oncologist and Dr. Segura, primary care physician, patient elected to proceed with prophylactic nailing of the right femur to help relieve the pain as well as prevent a pathological fracture. He has history of diabetes mellitus type 2 and hypertension. Please refer to my office note for full details. Operative findings:: Osteolytic lesion at the level of the lesser trochanter RIGHT proximal femur as noted on the preoperative imaging. Bone quality is good. Operative note:: On the day of surgery, patient was seen on the floor and positively identified. I have again reviewed the clinical and imaging findings with the patient. I have again discussed the diagnosis and management options in detail including both nonsurgical and surgical. Following admission patient had appropriate medical and cardiac workup and received 2 units of packed cell transfusion. He again wished to proceed with prophylactic nailing of his right femur to relieve pain as well as to prevent pathological fracture. I have discussed the procedure, risks and benefits, alternatives and the expected postoperative course and outcome. The complications discussed include but are not limited to infection, bleeding, injury to nerves and blood vessels, DVT, PE, screw cut-out/implant failure, loss of fixation, nonunion, osteonecrosis of the femoral head, femoral shaft fracture, painful hardware, heterotopic ossification, stiffness, weakness, incomplete relief of pain, incomplete return of function and the likely need for further surgery in future, and anesthetic/medical complications including heart attack, stroke, transfusion reaction or . We discussed how any of these events can be devastating. I've explained that the patient is at a significant surgical risk due to his age, current medical status and comorbidities. Patient seemed to understand and accept these risks. We have discussed nonsurgical alternatives as well. The nonoperative management would essentially consist of nonweightbearing mobilization and pain medication. This is less likely to effectively control his pain and there is potential risk of pathological fracture which might necessitate surgery at a later stage. We also discussed the postoperative course including the rehab and physical therapy required. Patient is from a custodial and is likely to go back there for rehab after surgery. All his questions were answered and he verbalized a good understanding. I have also discussed with Dr. Segura about his management. The patient was examined, findings are documented and consent form was reviewed and signed. Patient understood the risks, agreed to proceed with surgery, [signed the consent form] and no guarantees or assurances were given or implied. Following appropriate preoperative workup and medical/cardiac clearance, patient was brought to the operating room and a spinal anesthesia was administered. Patient was then positioned supine on the fracture table and all the bony prominences were appropriately padded. The RIGHT foot was secured in the footplate and the footplate was attached to the fracture table. The LEFT leg was placed out of the way in a leg moore. Under fluoroscopic guidance the the alignment was confirmed on both AP and lateral views; lytic lesion was noted around the lesser trochanter and no pathologic fracture was seen. The RIGHT hip and thigh were then prepped and draped in the usual sterile fashion. Admini stration of prophylactic antibiotics was confirmed with the anesthetic team (2 g of IV Ancef was administered). A preprocedure timeout was performed as per the hospital protocol. After marking the level of the greater trochanter on the skin under fluoroscopy, a skin incision was made proximal to the greater trochanter in line with the femoral shaft. The dissection was then carried through the subc utaneous tissue. The tensor fascia muscle was split in line with the fibers. This provided access to the tip of the greater trochanter. Under fluoroscopic guidance a guidewire was placed at the tip of the greater trochanter, the position was confirmed on both AP and lateral fluoroscopic views and advanced into the proximal femur. The proximal segment was then reamed over the guidewire and the guidewire was exchanged for a ball-tipped guidewire which was advanced into the distal femur. The position of the guidewire was confirmed in both AP and lateral views. Then sequential reaming was performed over the guidewire up to 11.5 mm reamer. The bone reamings as well as curettings from the region of the lesser trochanter were obtained for histopathology examination. The required nail length was measured. A 125 degree angle, 10 mm diameter, long (400 mm) RIGHT Willard Gamma 3 nail was selected. The selected nail was attached to the proximal jig and the nail was then inserted into the femur under fluoroscopic guidance. After seating the nail to the appropriate level, I proceeded to introduce the lag screw. We used the beneSol computer navigation system for placement of the lag screw. The lag screw sheath assembly was placed through the appropriate hole in the jig and locked in place. Then a 1 inch skin incision was made over the lateral thigh at this level. The incision was deepened through soft tissue and the fascia luda and the muscle was split. The trocar was removed and a guide pin was placed into the femoral head under fluoroscopic control. After confirming satisfactory placement of the guidepin in both AP and lateral fluoroscopic views the length was measured. A 100 mm lag screw was then selected. Drilling was performed over the guidewire for the lag screw. The lag screw was then introduced over the guidewire and advanced to an appropriate level. The lag screw was secured in place with the set screw. The guide pin and sheath were then removed. After final seating of the lag screw the tip apex distance was 14 mm. I then proceeded to perform the distal locking through the dynamic hole- we used the Willard Gamma nail distal locking jig for this. However, the artery was missing the screw hole through the nail. Therefore, I instead decided to lock through the static hole. We again used the Willard Gamma nail distal locking jig for this. After appropriately lining the drill sleeve and nail under fluoroscopic guidance, the drill sleeve was placed through the static hole and a 1 cm skin incision was made. Through the drill sleeve the 4.3 mm drill was introduced and the drill hole made for the distal locking screw. The screw length was measured and a 5 mm x 45 mm cortical bone screw was introduced through the static locking hole. The distal and proximal jigs were then removed and fluoroscopic screening was performed in both the AP and lateral views. The fixation was noted to be satisfactory and stable. Fluoroscopic images were obtained and stored digitally. The wounds were washed out with normal saline and hemostasis was obtained with the diathermy cautery. The wounds were then closed in layers with the 0 Vicryl, 2-0 Vicryl and 4-0 [place] cryl subcuticular sutures, Dermabond and Steri-Strips/to the skin. Sterile dressings were applied. The foot was taken out of the foot moore and the opposite leg out of the leg moore and placed on the table extension. The limb lengths were noted to be equal and there was no malalignment. Dorsalis pedis and posterior tibial pulses were 2+ on both sides. At the end of the procedure, swab, needle and instrument counts were correct according to the scrub team. Patient was then transferred onto the bed. Patient was then transported to the PACU in a stable condition. Patient tolerated the procedure well and there were no immediate complications. Postoperatively patient will receive 3 further doses of prophylactic antibiotics, DVT prophylaxis as per protocol and IV and oral analgesia as needed. Medical management as per Dr. Segura team. Patient can be mobilized on the first postoperative day with a walker, weight bearing on the right side as tolerated. Willard Gamma 3 long nailing system-125 degree angle, 10 mm diameter, long (400 mm) RIGHT Willard Gamma 3 nail, 10.5 mm x 100 mm lag screw and 5 mm x 45 mm distal locking screw. (Industry telemarketing sales representative: Adam Ortiz from [facility]) Condition: stable Disposition: PACU Specimens:: Curettings from proximal femur and reaming from femoral canal for hist opathological examination Complications:: None
[2018-10-30 06:40] LABS: Basophils % 0.3 % (0.1-2.0); Eosinophils % 0.2 % (0.1-12.0); Hematocrit 29.3 % (42.0-52.0); Hemoglobin 8.9 g/dL (14.1-18.0); Lymphocytes # 0.8 K/mm3 (0.7-4.5); Lymphocytes % 7.3 % (10-50); Mean Corpuscular HGB Conc 30.4 g/dL (31.8-35.4); Mean Corpuscular Hemoglobin 24.8 pg (27.0-31.2); Mean Corpuscular Volume 81.8 fl (80-94); Mean Platelet Volume 6.5 fl (7.4-10.4); Monocytes # 0.9 K/mm3 (0.1-1.0); Monocytes % 8.1 % (1.7-9.3); Neutrophils # 8.8 K/mm3 (1.8-7.8); Neutrophils % 84.1 % (37.0-80.0); Platelet Count 408 K/mm3 (142-424); Red Blood Count 3.59 M/mm3 (4.60-6.20); White Blood Count 10.4 K/mm3 (4.8-10.8)
[2018-10-30 06:44] LABS: Albumin Level 1.9 gm/dL (3.4-5.0); Albumin/Globulin Ratio 0.4 (1.1-1.8); Anion Gap 10.8 mEq/L (5-15); Bilirubin,Total 0.3 mg/dL (0.2-1.0); Calcium 11.1 mg/dL (8.5-10.1); Globulin 4.8 gm/dl (1.3-3.2); Potassium 3.8 mmoL/L (3.5-5.1); Total Protein,Serum 6.7 gm/dL (6.4-8.2)
--- NOTE | 2018-10-30 09:17 | Progress Note ---
Subjective Date: 10/30/18 Time: 09:13 Principal diagnosis: Hip fracture Interval history: 67 yo WM in bed in NAD. Reportedly had A. flutter during surgery and overnight that responded to IV Cardizem. Appears to have sinus tach this AM at 120 bpm at this time. Intake greater than output recently. Exam Vital signs and Labs for Last 24 Hours: Temp Pulse Resp BP Pulse Ox 98.5 F 118 H 20 96/71 L 93 L 10/30/18 07:50 10/30/18 07:50 10/30/18 07:50 10/30/18 07:50 10/30/18 07:50 Laboratory Results - last 24 hr 10/29/18 09:16: Urine Color Yellow, Urine Appearance Clear, Urine pH 5.5, Ur Specific [place] 1.020, Urine Protein Negative, Urine Glucose (UA) Negative, Urine Ketones Negative, Urine Blood 2+, Urine Nitrate Negative, Urine Bilirubin Negative, Urine Urobilinogen 0.2, Ur Leukocyte Esterase Negative, Urine RBC Occasional, Urine WBC 3-5, Ur Squamous Epith Cells None, Urine Bacteria Trace 10/29/18 12:27: POC Glucose 129 H 10/30/18 05:35: WBC 10.4, RBC 3.59 L, Hgb 8.9 L, Hct 29.3 L, MCV 81.8, MCH 24.8 L, MCHC 30.4 L, RDW 15.0, Plt Count 408, MPV 6.5 L, Neut % (Auto) 84.1 H, Lymph % (Auto) 7.3 L, [place] % (Auto) 8.1, Eos % (Auto) 0.2, Baso % (Auto) 0.3, Neut # (Auto) 8.8 H, Lymph # (Auto) 0.8, [place] # (Auto) 0.9, Eos # (Auto) 0.0, Baso # (Auto) 0.0 10/30/18 05:35: Sodium 137, Potassium 3.8 D, Chloride 101, Carbon Dioxide 29, Anion Gap 10.8, BUN 17 D, Creatinine 0.72, Estimated Creat Clear 68, Estimated GFR 109, Est GFR ( Amer) 132 D, Glucose 169 H, Calcium 11.1 H, Total Bilirubin 0.3, AST 9 L, ALT 7 L, Alkaline Phosphatase 82, Total Protein 6.7, Albumin 1.9 L, Globulin 4.8 H, Albumin/Globulin Ratio 0.4 L I & O for Last 24 hours: Intake & Output 10/27/18 10/28/18 10/29/18 10/30/18 11:59 11:59 11:59 11:59 Intake Total 980 / 980 1070 / 1070 2128 / 2128 Output Total 200 / 200 1200 / 1200 600 / 600 Balance 780 / 780 -130 / -130 1528 / 1528 Weight 135 lb 4 oz 135 lb 4 oz 140 lb 14.4 oz 148 lb 7 oz - *Routine Respiratory Exam Present: rhonchi, diminished air movement. Absent: accessory muscle use, rales, wheezes - *Routine Cardiovascular Exam Present: tachycardia. Absent: murmur, gallop, rubs - *Routine Extremities Exam Absent: edema, calf tenderness - *Routine Neurological Exam Present: alert, moving all extremities Progress Note: A&P (1) Lung cancer metastatic to bone Status: Acute Current Visit: Yes (2) Mass of both adrenal glands Status: Acute Current Visit: No (3) Anemia Status: Acute Current Visit: Yes (4) Anemia Status: Acute Current Visit: No (5) Renal insufficiency Status: Acute Current Visit: Yes (6) Hypercalcemia Status: Acute Current Visit: Yes (7) CAD (coronary artery disease) Status: Acute Current Visit: Yes (8) Atrial fibrillation with RVR Status: Acute Current Visit: Yes Assessment and Plan for All Diagnoses:: 1. Single dose of IV cardizem now along with bisoprolol 5 mg PO now and then daily 2. Single dose of IV lasix 20 mg now for pulmonary congestion and rhonchi with I>O yesterday. 3. Hospice to see patient today
--- NOTE | 2018-10-30 13:16 | Progress Note ---
Subjective Date: 10/30/18 Time: 12:45 Principal diagnosis: Metastatic lesion right femoral neck Interval history: 67-year-old male status post cephalo-medullary nailing right femur post op day # 1. Patient is lying down in bed. No history of any fevers, chills or rigors. No history of any nausea, vomiting, chest pain or SOB. Reportedly patient has been having irregular heart rate on and off which responded well to IV Cardizem. PN: Obj Ex Vital signs: Temp Pulse Resp BP Pulse Ox 98.5 F 118 H 18 96/71 L 93 L 10/30/18 07:50 10/30/18 09:30 10/30/18 09:30 10/30/18 07:50 10/30/18 09:30 Narrative: Intake & Output 10/28/18 10/29/18 10/30/18 10/31/18 11:59 11:59 11:59 11:59 Intake Total 980 / 980 1070 / 1070 2548 / 2548 Output Total 200 / 200 1200 / 1200 700 / 700 Balance 780 / 780 -130 / -130 1848 / 1848 Weight 135 lb 4 oz 140 lb 14.4 oz 148 lb 7 oz Laboratory Results - last 24 hr 10/29/18 09:16: Urine Color Yellow, Urine Appearance Clear, Urine pH 5.5, Ur Specific [place] 1.020, Urine Protein Negative, Urine Glucose (UA) Negative, Urine Ketones Negative, Urine Blood 2+, Urine Nitrate Negative, Urine Bilirubin Negative, Urine Urobilinogen 0.2, Ur Leukocyte Esterase Negative, Urine RBC Occasional, Urine WBC 3-5, Ur Squamous Epith Cells None, Urine Bacteria Trace 10/30/18 05:35: WBC 10.4, RBC 3.59 L, Hgb 8.9 L, Hct 29.3 L, MCV 81.8, MCH 24.8 L, MCHC 30.4 L, RDW 15.0, Plt Count 408, MPV 6.5 L, Neut % (Auto) 84.1 H, Lymph % (Auto) 7.3 L, [place] % (Auto) 8.1, Eos % (Auto) 0.2, Baso % (Auto) 0.3, Neut # (Auto) 8.8 H, Lymph # (Auto) 0.8, [place] # (Auto) 0.9, Eos # (Auto) 0.0, Baso # (Auto) 0.0 10/30/18 05:35: Sodium 137, Potassium 3.8 D, Chloride 101, Carbon Dioxide 29, Anion Gap 10.8, BUN 17 D, Creatinine 0.72, Estimated Creat Clear 68, Estimated GFR 109, Est GFR ( Amer) 132 D, Glucose 169 H, Calcium 11.1 H, Total Bilirubin 0.3, AST 9 L, ALT 7 L, Alkaline Phosphatase 82, Total Protein 6.7, Albumin 1.9 L, Globulin 4.8 H, Albumin/Globulin Ratio 0.4 L Exam General appearance: Alert, awake, lethargic, no acute distress Cardiovascular: Tachycardia, regular rate Respiratory: no respiratory distress; rhonchi and diminished air movement bilaterally ABD: soft and nontender. Bowel sounds heard over all 4 quadrants. Genitourinary: catheter in place Skin: no gross abnormalities On examination of the right lower extremity, the limb lengths are equal. The alignment is neutral. The dressings over the right hip/thigh are clean, dry and intact. Attempted movements of the right hip are painful. Distal neurovascular status is intact. No clinical signs of DVT - Urinary Catheter Management Coude Cath placed during this visit: yes Urethral indwelling: Yes Reason for continuing: Surgical procedure Insertion date: 10/29/18 Insertion time: 09:16 Progress Note: A&P (1) Lung cancer metastatic to bone Status: Acute Current Visit: Yes (2) Mass of both adrenal glands Status: Acute Current Visit: No (3) Anemia Status: Acute Current Visit: Yes (4) Anemia Status: Acute Current Visit: No (5) Renal insufficiency Status: Acute Current Visit: Yes (6) Hypercalcemia Status: Acute Current Visit: Yes (7) CAD (coronary artery disease) Status: Acute Current Visit: Yes (8) Atrial fibrillation with RVR Status: Acute Current Visit: Yes Assessment and Plan for All Diagnoses:: I reviewed the procedure and progress with the patient. He can be mobilized/transferred with the help of physical therapist weightbearing on the right side as tolerated. Continue PT/OT, pain management with narcotic analgesics. Discontinue Swan's catheter. Medical management as per Dr. Jackson team.
--- NOTE | 2018-10-30 21:27 | Progress Note ---
Internal Medicine - PN: Subj *Date: 10/30/18 *Time: 08:30 Interval history: this am pt is back in a flutter with rate of 135. pt is asymptomatic to hr. pt sitting up alert and talking Exam Vital signs and Labs for Last 24 Hours: Temp Pulse Resp BP Pulse Ox 97.5 F L 76 14 91/57 L 95 10/30/18 20:00 10/30/18 20:00 10/30/18 20:00 10/30/18 20:00 10/30/18 20:00 Laboratory Results - last 24 hr 10/30/18 05:35: WBC 10.4, RBC 3.59 L, Hgb 8.9 L, Hct 29.3 L, MCV 81.8, MCH 24.8 L, MCHC 30.4 L, RDW 15.0, Plt Count 408, MPV 6.5 L, Neut % (Auto) 84.1 H, Lymph % (Auto) 7.3 L, [place] % (Auto) 8.1, Eos % (Auto) 0.2, Baso % (Auto) 0.3, Neut # (Auto) 8.8 H, Lymph # (Auto) 0.8, [place] # (Auto) 0.9, Eos # (Auto) 0.0, Baso # (Auto) 0.0 10/30/18 05:35: Sodium 137, Potassium 3.8 D, Chloride 101, Carbon Dioxide 29, Anion Gap 10.8, BUN 17 D, Creatinine 0.72, Estimated Creat Clear 68, Estimated GFR 109, Est GFR ( Amer) 132 D, Glucose 169 H, Calcium 11.1 H, Total Bilirubin 0.3, AST 9 L, ALT 7 L, Alkaline Phosphatase 82, Total Protein 6.7, Albumin 1.9 L, Globulin 4.8 H, Albumin/Globulin Ratio 0.4 L I & O for Last 24 hours: Intake & Output 10/28/18 10/29/18 10/30/18 10/31/18 11:59 11:59 11:59 11:59 Intake Total 980 / 980 1070 / 1070 2548 / 2548 609 / 609 Output Total 200 / 200 1200 / 1200 700 / 700 100 / 100 Balance 780 / 780 -130 / -130 1848 / 1848 509 / 509 Weight 135 lb 4 oz 140 lb 14.4 oz 148 lb 7 oz - Constitutional no acute distress - *Routine HEENT Exam Head: Present: normocephalic Eye: Present: EOMI, PERRL ENT: Present: mucous membranes moist - *Routine Neck Exam Present: supple. Absent: lymphadenopathy - *Routine Respiratory Exam Present: CTA bilaterally, diminished air movement - *Routine Cardiovascular Exam Present: irregular rhythm - *Routine Abdominal Exam Present: soft, normoactive bowel sounds. Absent: tenderness - *Routine Extremities Exam Absent: cyanosis, clubbing, edema Comments: dressing to rt leg and hip - *Routine Skin Exam Present: warm. Absent: rash Comments: dressing to rt hip clean,dry intact - *Routine Neurological Exam Present: alert, oriented X3 - Routine Psychiatric Exam Present: normal affect Assessment and Plan (1) Lung cancer metastatic to bone Current visit: Yes Status: Acute Category: Medical Code(s): C34.90 - Malignant neoplasm of unspecified part of unspecified bronchus or lung; C79.51 - Secondary malignant neoplasm of bone (2) Mass of both adrenal glands Current visit: No Status: Acute Category: Medical Code(s): E27.9 - Disorder of adrenal gland, unspecified (3) Anemia Current visit: Yes Status: Acute Qualifiers: Anemia type: unspecified type Qualified Code(s): D64.9 - Anemia, unspecified Category: Medical Code(s): D64.9 - Anemia, unspecified (4) Anemia Current visit: No Status: Acute Qualifiers: Anemia type: unspecified type Qualified Code(s): D64.9 - Anemia, unspecified Category: Medical Code(s): D64.9 - Anemia, unspecified (5) Renal insufficiency Current visit: Yes Status: Acute Category: Medical Code(s): N28.9 - Disorder of kidney and ureter, unspecified (6) Hypercalcemia Current visit: Yes Status: Acute Category: Medical Code(s): E83.52 - Hypercalcemia (7) CAD (coronary artery disease) Current visit: Yes Status: Acute Qualifiers: Coronary Disease-Associated Artery/Lesion type: unspecified vessel or lesion type Category: Medical Code(s): I25.10 - Atherosclerotic heart disease of [place] coronary artery without angina pectoris (8) Atrial fibrillation with RVR Current visit: Yes Status: Acute Category: Medical Code(s): I48.91 - Unspecified atrial fibrillation - Assessment and plan all Dx Assessment and Plan for all problems:: rounded with chintan all orders per chintan rate control monitor labs hospice to consult tomorrow
[2018-10-31 06:07] LABS: Basophils % 0.3 % (0.1-2.0); Eosinophils # 0.2 K/mm3 (0.0-0.4); Eosinophils % 2.1 % (0.1-12.0); Hematocrit 26.8 % (42.0-52.0); Lymphocytes # 0.8 K/mm3 (0.7-4.5); Lymphocytes % 7.9 % (10-50); Mean Corpuscular HGB Conc 29.7 g/dL (31.8-35.4); Mean Corpuscular Hemoglobin 24.9 pg (27.0-31.2); Mean Corpuscular Volume 83.8 fl (80-94); Monocytes # 0.7 K/mm3 (0.1-1.0); Monocytes % 6.8 % (1.7-9.3); Neutrophils # 8.2 K/mm3 (1.8-7.8); Neutrophils % 82.8 % (37.0-80.0); Platelet Count 365 K/mm3 (142-424); White Blood Count 9.9 K/mm3 (4.8-10.8)
[2018-10-31 06:13] LABS: Anion Gap 10.6 mEq/L (5-15); Calcium 10.8 mg/dL (8.5-10.1); Potassium 3.6 mmoL/L (3.5-5.1)
--- NOTE | 2018-10-31 12:56 | Progress Note ---
Subjective Date: 10/31/18 Time: 12:30 Principal diagnosis: Metastatic lesion right femoral neck Interval history: 67-year-old male status post prophylactic cephalo-medullary nailing right femur post op day # 2. Patient is lying down in bed. No history of any fevers, ch ills or rigors. No history of any nausea, vomiting, chest pain or SOB. PN: Obj Ex Vital signs: Temp Pulse Resp BP Pulse Ox 97.7 F 60 20 98/44 L 96 10/31/18 08:00 10/31/18 08:00 10/31/18 08:00 10/31/18 08:00 10/31/18 08:00 Narrative: Laboratory Results - last 24 hr 10/31/18 05:39: WBC 9.9, RBC 3.20 L, Hgb 8.0 L, Hct 26.8 L, MCV 83.8, MCH 24.9 L , MCHC 29.7 L, RDW 15.0, Plt Count 365, MPV 7.0 L, Neut % (Auto) 82.8 H, Lymph % (Auto) 7.9 L, Chaves % (Auto) 6.8, Eos % (Auto) 2.1, Baso % (Auto) 0.3, Neut # (Auto) 8.2 H, Lymph # (Auto) 0.8, Chaves # (Auto) 0.7, Eos # (Auto) 0.2, Baso # (Auto) 0.0 10/31/18 05:39: Sodium 136, Potassium 3.6, Chloride 99, Carbon Dioxide 30, Anion Gap 10.6, BUN 21 H, Creatinine 0.91 D, Estimated Creat Clear 67, Estimated GFR 83, Est GFR ( Amer) 101 D, Glucose 161 H, Calcium 10.8 H Exam General appearance: Alert, awake, lethargic, no acute distress Cardiovascular: Tachycardia, regular rate Respiratory: no respiratory distress; rhonchi and diminished air movement bilaterally ABD: soft and nontender. Bowel sounds heard over all 4 quadrants. On examination of the right lower extremity, the limb lengths are equal. The alignment is neutral. The dressings over the right hip/thigh are clean, dry and intact. I have changed the surgical dressings and the incisions are healthy. There is no discharge, bleeding, erythema or induration. Attempted movements of the right hip are painful. Distal neurovascular status is intact. No clinical signs of DVT noted. - Urinary Catheter Management Coude Cath placed during this visit: yes Urethral indwelling: Yes Reason for continuing: Surgical procedure Insertion date: 10/29/18 Insertion time: 09:16 Progress Note: A&P (1) Lung cancer metastatic to bone Status: Acute Current Visit: Yes (2) Mass of both adrenal glands Status: Acute Current Visit: No (3) Anemia Status: Acute Current Visit: Yes (4) Anemia Status: Acute Current Visit: No (5) Renal insufficiency Status: Acute Current Visit: Yes (6) Hypercalcemia Status: Acute Current Visit: Yes (7) CAD (coronary artery disease) Status: Acute Current Visit: Yes (8) Atrial fibrillation with RVR Status: Acute Current Visit: Yes Assessment and Plan for All Diagnoses:: I have reviewed the findings and progress with the patient. He can be mobilized/transferred with the help of physical therapist weightbearing on the right side as tolerated. Continue PT/OT, pain management with narcotic analgesics. Continue DVT prophylaxis for 5 weeks from surgery-ASA 325 mg once a day, Lovenox, Coumadin, or Xarelto would all be considered appropriate agents. The surgical dressings to be changed as needed. From an orthopaedic standpoint, patient can be discharged back to the assisted facility if appropriate medically. Follow-up in my office in 2 weeks from surgery for suture removal and reevaluation. Medical management as per Dr. Jackson team.
== END 2018-10-31 16:38 | disposition hospice, inpatient (51) | DRG 481 ==
LOC: 2ND 10:17 → EDSTATUS 10-28 13:00 → 2ND 10-28 15:53
PROVIDERS: ADMIT Emergency Medicine; ATTEND Emergency Medicine
CPT/HCPCS: 36415; 73502; 76000; 80048; 80053; 81001; 82962; 83735; 85007; 85014; 85018; 85025; 85610; 86850; 93005; 93306; 94640; 94761; 97110; 97163; C1713; C1769; P9016

== ENCOUNTER → 2018-11-13 09:53 | Outpatient (CLI) | payer MEDICARE, MEDICAID, OTHER, SELFPAY ==
--- NOTE | 2018-11-13 09:58 | XR_ITS ---
XR femur RT 2V CLINICAL INDICATION: Follow-up ORIF right femoral neck fracture ITS.REASON: sp nailing RT femur DOS 10/27/18 ORDERING PHYSICIAN: Tereso Segura MD PATIENT AGE: 67 years Comparison: 10/29/2018 FINDINGS: Gamma nail has been placed stabilizing the intertrochanteric fracture with long intramedullary right in the right femur. There is good alignment. No radiographic orthopedic complication is apparent. Fracture line is less apparent. IMPRESSION: Healing intertrochanteric fracture status post ORIF with good alignment
--- NOTE | 2018-11-13 09:58 | XR_ITS ---
XR hip RT 2-3V w/pelvis HISTORY: Follow-up ORIF right hip fracture ITS.REASON: sp nailing RT femur DOS 10/27/18 ORDERING PHYSICIAN: Tereso Segura MD PATIENT AGE: 67 years COMPARISON: None FINDINGS: Gamma nail has been placed stabilizing the intertrochanteric fracture with long intramedullary right in the right femur. There is good alignment. No radiographic orthopedic complication is apparent. Fracture line is less apparent. There is some residual soft tissue gas lateral to the ilium. Surgical clips are present in the inguinal region. IMPRESSION: Healing intertrochanteric fracture status post ORIF with good alignment Residual postoperative soft tissue gas
== END ==
PROVIDERS: PCP Emergency Medicine; Visit Provider Emergency Medicine
DX: Z48.89 Encounter for other specified surgical aftercare (principal)
CPT/HCPCS: 73502; 73552